=== PATIENT | male | born 1940 | race Caucasian/White ===

== ENCOUNTER → 2016-03-16 | Outpatient (CLI) | payer MEDICARE ==
--- NOTE | 2016-03-16 13:56 | MR ---
EXAMINATION TYPE: MR brain wo con DATE OF EXAM: 03/16/2016 1:48 PM COMPARISON: Prior MRI brain September 02, 2013 HISTORY: Acute onset of severe Vertigo and diplopia per order. Double vision with right-sided hearing loss and loss of balance per patient. History of prostate cancer. TECHNIQUE: Multiplanar, multisequence imaging of the brain and brainstem is performed without IV cont rast. FINDINGS: Diffusion weighted images demonstrate no evidence of a recent infarct or other diffusion abnormality. There is no worrisome extra-axial fluid collection. The ventricular system and cisternal spaces are normal in size and appearance. The brain volume is age appropriate. There are scattered foci of T2 h yperintensity seen throughout the white matter bilaterally. Approximately 50 scattered lesions are pr esent. Lesions are nonspecific in appearance and distribution are most likely on basis of product of chronic small vessel ischemic change in patient this age. No significant change from prior MRI is not ed. Midline structures demonstrate normal morphology. The craniocervical junction appears within normal limits. Normal vascular flow voids are present. Tortuous course to distal left vertebral artery in pr oximal basilar artery is redemonstrated. Right globe shows distortion related to cortical buckle unch anged from prior study. The visualized paranasal sinuses are clear. No suspicious opacification of ma stoid air cells is present. IMPRESSION: 1. Stable moderate nonspecific white matter changes presumed on basis of product of chronic small ves ilene ischemic change in patient of this age.
== END | disposition home or self-care (01) ==
LOC: RADMRIMAIN 12:54
PROVIDERS: ATTEND Psychiatry & Neurology Neurology
DX: R90.89 Other abnormal findings on diagnostic imaging of central nervous system (principal); H53.2 Diplopia
CPT/HCPCS: 70551

== ENCOUNTER 2016-11-11 12:22 | Emergency (ER) | payer MEDICARE ==
[2016-11-11 12:34] VITALS: RESP 18
--- NOTE | 2016-11-11 13:38 | ED ---
Lower Extremity Injury HPI - General Chief Complaint: Extremity Injury, Lower Stated Complaint: left leg injury Time Seen by Provider: 11/11/16 12:44 Source: patient Mode of arrival: ambulatory Limitations: no limitations - History of Present Illness Initial Comments: 76-year-old male with past medical history of CVA/TIA, DM, HLD, HTN, seizures, and cancer presented for evaluation of left lower extremity injury. He states that on Saturday he was walking and stepped into a hole causing an abrasion to the left lateral/anterior schneider. He didn't pay any attention to it however over the course of the weekend is become more discolored, swollen however he denies significant pain. That he is still able to walk on the extremity and there is no decreased range of motion or decreased sensation. He denies any other injuries. - Related Data Home Medications Medication Instructions Recorded Confirmed ALPRAZolam [Xanax] 0.25 mg PO BID PRN 12/02/13 11/11/16 Aspirin 81 mg PO DAILY 12/02/13 11/11/16 Atorvastatin [Lipitor] 20 mg PO HS 12/02/13 11/11/16 amLODIPine BES/OLMESARTAN MED 1 tab PO DAILY 12/02/13 11/11/16 [Shira 5-40 mg Tablet] DULoxetine HCL [Cymbalta] 60 mg PO DAILY 08/09/14 11/11/16 Omeprazole [PriLOSEC] 20 mg PO AC-BID 08/09/14 11/11/16 Albuterol Inhaler [Ventolin Hfa 1 - 2 puff INHALATION RT-Q6H PRN 11/11/16 Inhaler] Atenolol [Tenormin] 25 mg PO BID 11/11/16 11/11/16 Fluticasone/Salmeterol [Advair 1 puff INHALATION RT-BID 11/11/16 11/11/16 250-50 Diskus] Gabapentin [Gralise] 600 mg PO HS 11/11/16 11/11/16 Meclizine [Antivert] 25 mg PO BID 11/11/16 11/11/16 metFORMIN HCL [Glucophage] 500 mg PO BID 11/11/16 11/11/16 Allergies Allergy/AdvReac Type Severity Reaction Status Date / Time Penicillins Allergy Rash/Hives Verified 11/11/16 13:57 tuberculin, purified protein Allergy Rapid Verified 11/11/16 13:57 deriva Heart Rate metoprolol tartrate AdvReac Hallucinati Verified 11/11/16 13:57 [From Lopressor] ons Review of Systems ROS Statement: Those systems with pertinent positive or pertinent negative responses have been documented in the HPI. ROS Other: All systems not noted in ROS Statement are negative. Constitutional: Denies: fever, chills Eyes: Denies: eye pain, eye discharge ENT: Denies: ear pain, throat pain Respiratory: Denies: cough, dyspnea Cardiovascular: Denies: chest pain, palpitations Endocrine: Denies: fatigue, heat or cold intolerance Gastrointestinal: Denies: abdominal pain, nausea, vomiting Genitourinary: Denies: urgency, dysuria Musculoskeletal: Denies: back pain, arthralgia, myalgia Skin: Reports: lesions (Abrasion to the left lateral/anterior lower extremity with significant contusion and discoloration. There is also multiple small bolus fluid collections across the entire area of injury.). Denies: rash Neurological: Denies: headache, weakness Psychiatric: Denies: anxiety, depression Hematological/Lymphatic: Denies: easy bleeding, easy bruising Past Medical History Past Medical History: Cancer, Chest Pain / Angina, CVA/TIA, Diabetes Mellitus, Hyperlipidemia, Hypertension, Seizure Disorder History of Any Multi-Drug Resistant Organisms: None Reported Additional Past Surgical History / Comment(s): eye surgery, lens implants Past Anesthesia/Blood Transfusion Reactions: No Reported Reaction Past Psychological History: No Psychological Hx Reported Smoking Status: Former smoker Past Alcohol Use History: None Reported Past Drug Use History: None Reported - Past Family History Father Family Medical History: No Reported History General Exam Limitations: no limitations General appearance: alert, in no apparent distress Head exam: Present: atraumatic, normocephalic, normal inspection Eye exam: Present: normal appearance, PERRL, EOMI. Absent: scleral icterus, conjunctival injection, periorbital swelling ENT exam: Present: normal exam, mucous membranes moist Neck exam: Present: normal inspection. Absent: tenderness, meningismus, lymphadenopathy Respiratory exam: Present: normal lung sounds bilaterally. Absent: respiratory distress, wheezes, rales, rhonchi, stridor Cardiovascular Exam: Present: regular rate, normal rhythm, normal heart sounds, other (Left foot cool to touch compared to the right which is warm.). Absent: systolic murmur, diastolic murmur, rubs, gallop, clicks GI/Abdominal exam: Present: soft, normal bowel sounds. Absent: distended, tenderness, guarding, rebound, rigid Rectal exam: Present: deferred Extremities exam: Present: full ROM, other (Left anterolateral calf with significant bruising and swelling. There is also fluid-filled collections under the skin above and below the area of injury as well as immediately adjacent. Only mild swelling to the left ankle of her skin is cool to touch to the left foot compared to the right.). Absent: tenderness, pedal edema, joint swelling Back exam: Present: normal inspection, full ROM. Absent: tenderness Neurological exam: Present: alert, oriented X3, CN II-XII intact, reflexes normal. Absent: motor sensory deficit Psychiatric exam: Present: normal affect, normal mood Skin exam: Present: erythema, vesicles. Absent: intact, normal color Course Vital Signs 11/11/16 12:27 Temperature 97.7 F Pulse Rate 74 Respiratory 18 Rate Blood Pressure 121/88 O2 Sat by Pulse 96 Oximetry Medical Decision Making - Medical Decision Making 76-year-old male presented for evaluation of injury to the left lower extremity on Saturday. States he stepped in a hole causing an abrasion however he was able to continue walking throughout the weekend. He noted that the left anterior lateral surface of his leg where the abrasion had occurred has consistently been becoming discolored with swelling and now there are vesicle lesions surrounding the injury. There is also lower extremity swelling but only minimally. On physical examination the left lower extremity is noted as above with significant contusion and discoloration. The patient denies any anticoagulant use. The left foot is also cool to touch compared to the right which is warm. There appears to be no change in appearance between the 2 legs however they are both pale and baseline. Motor function is intact with full range of motion and there is no sensory deficit on exam. The patient is ambulating on the leg with no apparent discomfort. Concern for vascular injury versus compartment syndrome and will obtain an ankle brachial index as well as baseline labs. EULALIA shows no significant difference between the left or right legs with an index of 1.27 on the right and 1.25 on the left. On repeat evaluation the patient remains in no apparent distress and on reexamination temperature to palpation between the bilateral feet is closer approximation from previous. He was informed of results and through shared decision making it was determined that he would be discharged with instructions to follow-up with his primary care physician this week but to return if his symptoms should worsen or persist including but not limited to: Lower extremity weakness, pallor/discoloration, change in sensation, pain out of proportion to touching, or if the foot should become cold. The patient acknowledged an understanding of this information and agreed with this plan of care. - Lab Data Result diagrams: 11/11/16 13:33 11/11/16 13:33 Lab Results 11/11/16 11/11/16 11/11/16 Range/Units 13:33 13:33 13:33 WBC 7.3 (3.8-10.6) k/uL RBC 4.90 (4.30-5.90) m/uL Hgb 15.8 (13.0-17.5) gm/dL Hct 46.1 (39.0-53.0) % MCV 94.0 (80.0-100.0) fL MCH 32.3 (25.0-35.0) pg MCHC 34.4 (31.0-37.0) g/dL RDW 13.3 (11.5-15.5) % Plt Count 214 (150-450) k/uL Neutrophils % 64 % Lymphocytes % 22 % Monocytes % 10 % Eosinophils % 2 % Basophils % 1 % Neutrophils # 4.7 (1.3-7.7) k/uL Lymphocytes # 1.6 (1.0-4.8) k/uL Monocytes # 0.7 (0-1.0) k/uL Eosinophils # 0.1 (0-0.7) k/uL Basophils # 0.1 (0-0.2) k/uL PT 10.9 (9.0-12.0) sec INR 1.1 (<1.2) APTT 23.2 (22.0-30.0) sec Sodium 139 (137-145) mmol/L Potassium 4.3 (3.5-5.1) mmol/L Chloride 105 (98-107) mmol/L Carbon Dioxide 25 (22-30) mmol/L Anion Gap 9 mmol/L BUN 13 (9-20) mg/dL Creatinine 1.20 (0.66-1.25) mg/dL Est GFR (MDRD) Af Amer >60 (>60 ml/min/1.73 sqM) Est GFR (MDRD) Non-Af 59 (>60 ml/min/1.73 sqM) Glucose 110 H (74-99) mg/dL Calcium 9.6 (8.4-10.2) mg/dL 11/11/16 15:01 EKG shows normal sinus rhythm with a ventricular rate of 70, TOMMIE 168, QRS 96, QT /QTC 396/427. Disposition Clinical Impression: Abrasion, lower leg, anterior, Contusion of lower limb, left Disposition: HOME SELF-CARE Condition: Stable Instructions: Abrasion (ED) Referrals: Jigar Chris MD [Primary Care Provider] - 1-2 days Time of Disposition: 15:04
[2016-11-11 14:09] LABS: Basophils # (A) 0.1 k/uL (0-0.2); Basophils % (A) 1 %; CH 31.6; CHCM 33.7; Eosinophils # (A) 0.1 k/uL (0-0.7); Eosinophils % (A) 2 %; HCT 46.1 % (39.0-53.0); HDW 2.41; HGB 15.8 gm/dL (13.0-17.5); Luc % (Auto) 3; Lymphocytes # (A) 1.6 k/uL (1.0-4.8); Lymphocytes % (A) 22 %; MCH 32.3 pg (25.0-35.0); MCHC 34.4 g/dL (31.0-37.0); Monocytes # (A) 0.7 k/uL (0-1.0); Monocytes % (A) 10 %; Neutrophils # (A) 4.7 k/uL (1.3-7.7); Neutrophils % (A) 64 %; RDW 13.3 % (11.5-15.5); WBC 7.3 k/uL (3.8-10.6); WBC (Perox) 7.23
[2016-11-11 14:14] LABS: INR 1.1 (<1.2); Partial Thromboplastin Time 23.2 sec (22.0-30.0); Prothrombin Time 10.9 sec (9.0-12.0)
[2016-11-11 14:16] LABS: Anion Gap 9 mmol/L; Blood Urea Nitrogen 13 mg/dL (9-20); Calcium 9.6 mg/dL (8.4-10.2); Carbon Dioxide 25 mmol/L (22-30); Chloride 105 mmol/L (98-107); Glucose 110 mg/dL (74-99); Non-African American GFR(MDRD) 59 (>60 ml/min/1.73 sqM); Potassium 4.3 mmol/L (3.5-5.1); Sodium 139 mmol/L (137-145)
[2016-11-11 15:37] VITALS: BP 120/70; PULSE 78; TEMP 98
--- NOTE | 2016-11-14 10:29 | P.ARTDOP ---
Arterial Doppler LOWER EXTREMITY ARTERIAL DOPPLER: DATE OF SERVICE: 11/11/2016 Reason for study: Left leg injury. Doppler waveforms: Multiphasic bilaterally throughout. Pulse volume recording: Normal configuration. Pressure gradients: None. Ankle-brachial indices: Greater than 1 bilaterally. Toe pressures: [] on the right, [] on the left Impression: Normal study.
== END 2016-11-11 15:35 | disposition home or self-care (01) ==
LOC: EC 12:22
DX: S80.12XA Contusion of left lower leg, initial encounter (principal); E11.9 Type 2 diabetes mellitus without complications; E78.5 Hyperlipidemia, unspecified; I10 Essential (primary) hypertension; G40.909 Epilepsy, unspecified, not intractable, without status epilepticus; Z85.9 Personal history of malignant neoplasm, unspecified; Z88.0 Allergy status to penicillin; Z88.8 Allergy status to other drugs, medicaments and biological substances; Z88.7 Allergy status to serum and vaccine; Z79.51 Long term (current) use of inhaled steroids; Z79.84 Long term (current) use of oral hypoglycemic drugs; Z87.891 Personal history of nicotine dependence; Z79.82 Long term (current) use of aspirin; Z79.899 Other long term (current) drug therapy; W18.42XA Slipping, tripping and stumbling without falling due to stepping into hole or opening, initial encounter; Y93.01 Activity, walking, marching and hiking
CPT/HCPCS: 36415; 80048; 85025; 85610; 85730; 93005; 93923; 99284

== ENCOUNTER 2017-03-15 10:22 | Observation (INO) | payer MEDICARE ==
[2017-03-15 10:39] LABS: Glucose,Whole Blood 85 mg/dL (75-99)
[2017-03-15] MEDS ORDERED: SODIUM CHLORIDE 0.9% 1,000 ML IV STA (10:41)
--- NOTE | 2017-03-15 10:48 | ED ---
Syncope HPI - General Chief Complaint: Syncope Stated Complaint: Fall-Back Injury Time Seen by Provider: 03/15/17 10:24 Source: patient, RN notes reviewed Mode of arrival: ambulatory Limitations: no limitations - History of Present Illness Initial Comments: This is a 76-year-old male with a history of prostate cancer was reaching to get an item of the medicine cabinet when he passed out. He states he is only out for a few seconds he did land however across the edge of a bathtub and complains of bilateral lower rib pain. No head neck or back pain. He does state also has some blurry vision of his right eye. This lasted about 30 minutes. Is now resolved. He does have a prior history of stroke. No fevers chills nausea vomiting sweats he also has a history of seizures but no seizure was witnessed. MD Complaint: loss of consciousness - Related Data Home Medications Medication Instructions Recorded Confirmed ALPRAZolam [Xanax] 0.25 mg PO BID PRN 12/02/13 03/15/17 Aspirin 81 mg PO DAILY 12/02/13 03/15/17 Atorvastatin [Lipitor] 20 mg PO HS 12/02/13 03/15/17 DULoxetine HCL [Cymbalta] 60 mg PO DAILY 08/09/14 03/15/17 Omeprazole [PriLOSEC] 20 mg PO AC-BID 08/09/14 03/15/17 Albuterol Inhaler [Ventolin Hfa 1 - 2 puff INHALATION RT-Q6H PRN 11/11/16 Inhaler] Atenolol [Tenormin] 25 mg PO BID 11/11/16 03/15/17 Fluticasone/Salmeterol [Advair 1 puff INHALATION RT-BID 11/11/16 03/15/17 250-50 Diskus] Gabapentin [Gralise] 600 mg PO HS 11/11/16 03/15/17 Meclizine [Antivert] 25 mg PO BID 11/11/16 03/15/17 Lisinopril 40 mg PO DAILY 03/15/17 03/15/17 Allergies Allergy/AdvReac Type Severity Reaction Status Date / Time Penicillins Allergy Rash/Hives Verified 03/15/17 10:57 tuberculin, purified protein Allergy Rapid Verified 03/15/17 10:57 deriva Heart Rate metoprolol tartrate AdvReac Hallucinati Verified 03/15/17 10:57 [From Lopressor] ons Review of Systems ROS Statement: Those systems with pertinent positive or pertinent negative responses have been documented in the HPI. ROS Other: All systems not noted in ROS Statement are negative. Past Medical History Past Medical History: Cancer, Chest Pain / Angina, CVA/TIA, Diabetes Mellitus, Hyperlipidemia, Hypertension, Prostate Disorder, Seizure Disorder History of Any Multi-Drug Resistant Organisms: None Reported Past Surgical History: Cholecystectomy Additional Past Surgical History / Comment(s): eye surgery, lens implants, prostate CA Past Anesthesia/Blood Transfusion Reactions: No Reported Reaction Past Psychological History: No Psychological Hx Reported Smoking Status: Former smoker Past Alcohol Use History: None Reported Past Drug Use History: None Reported - Past Family History Father Family Medical History: No Reported History General Exam - General Exam Comments Initial Comments: This a well-developed well-nourished awake alert oriented 3 male he does them straight a [place] Coma Scale of 15 Limitations: no limitations General appearance: alert, in no apparent distress Head exam: Present: atraumatic, normocephalic, normal inspection Eye exam: Present: normal appearance, PERRL, EOMI. Absent: scleral icterus, conjunctival injection, periorbital swelling ENT exam: Present: normal exam, mucous membranes moist Neck exam: Present: normal inspection. Absent: tenderness, meningismus, lymphadenopathy Respiratory exam: Present: normal lung sounds bilaterally, chest wall tenderness (Abrasion and tenderness over both CVA regions. No definite step- off or crepitation.). Absent: respiratory distress, wheezes, rales, rhonchi, stridor Cardiovascular Exam: Present: regular rate, normal rhythm, normal heart sounds. Absent: systolic murmur, diastolic murmur, rubs, gallop, clicks GI/Abdominal exam: Present: soft, normal bowel sounds. Absent: distended, tenderness, guarding, rebound, rigid Extremities exam: Present: normal inspection, full ROM, normal capillary refill. Absent: tenderness, pedal edema, joint swelling, calf tenderness Back exam: Present: normal inspection, full ROM, CVA tenderness (R), CVA tenderness (L), other (Abrasion noted over both CVA regions. No active bleeding no foreign body). Absent: tenderness, paraspinal tenderness, vertebral tenderness Neurological exam: Present: alert, oriented X3, CN II-XII intact Psychiatric exam: Present: normal affect, normal mood Skin exam: Present: warm, dry, normal color. Absent: intact, rash Course Vital Signs 03/15/17 03/15/17 10:26 10:54 Temperature 97.1 F L Pulse Rate 67 65 Respiratory 17 16 Rate Blood Pressure 172/98 135/74 O2 Sat by Pulse 95 95 Oximetry - Reevaluation(s) Reevaluation #1: 03/15/17 13:13 Reevaluation patient reveals no changes no further episodes. EKG Findings - EKG Results: EKG: interpreted by ERMD, sinus rhythm, normal axis, normal QRS, normal ST/T, no acute changes (EKG shows normal sinus rhythm at 66. Interval 170 QRS duration 92 QT since QTC of 44/[address]-T wave changes.) Medical Decision Making - Medical Decision Making I did discuss findings with the patient and family member. Acid discuss case Dr. Guillory. Patient be admitted for evaluation for syncope. - Lab Data Result diagrams: 03/15/17 10:00 03/15/17 10:00 Lab Results 03/15/17 03/15/17 03/15/17 Range/Units 10:00 10:00 10:00 WBC 6.9 (3.8-10.6) k/uL RBC 5.50 (4.30-5.90) m/uL Hgb 16.7 (13.0-17.5) gm/dL Hct 54.0 H (39.0-53.0) % MCV 98.3 (80.0-100.0) fL MCH 30.3 (25.0-35.0) pg MCHC 30.8 L (31.0-37.0) g/dL RDW 14.9 (11.5-15.5) % Plt Count 208 (150-450) k/uL Neutrophils % 71 % Lymphocytes % 13 % Monocytes % 10 % Eosinophils % 2 % Basophils % 1 % Neutrophils # 4.9 (1.3-7.7) k/uL Lymphocytes # 0.9 L (1.0-4.8) k/uL Monocytes # 0.7 (0-1.0) k/uL Eosinophils # 0.1 (0-0.7) k/uL Basophils # 0.1 (0-0.2) k/uL PT (9.0-12.0) sec INR (<1.2) APTT (22.0-30.0) sec Sodium 140 (137-145) mmol/L Potassium 4.8 (3.5-5.1) mmol/L Chloride 103 (98-107) mmol/L Carbon Dioxide 25 (22-30) mmol/L Anion Gap 12 mmol/L BUN 15 (9-20) mg/dL Creatinine 0.93 (0.66-1.25) mg/dL Est GFR (MDRD) Af Amer >60 (>60 ml/min/1.73 sqM) Est GFR (MDRD) Non-Af >60 (>60 ml/min/1.73 sqM) Glucose 97 (74-99) mg/dL POC Glucose (mg/dL) (75-99) mg/dL POC Glu School Admissions Representative ID Calcium 10.4 H (8.4-10.2) mg/dL Magnesium 1.8 (1.6-2.3) mg/dL Total Bilirubin 0.9 (0.2-1.3) mg/dL AST 28 (17-59) U/L ALT 31 (21-72) U/L Alkaline Phosphatase 64 (38-126) U/L Total Creatine Kinase 55 (55-170) U/L CK-MB (CK-2) 0.3 (0.0-2.4) ng/mL CK-MB (CK-2) Rel Index 0.5 Troponin I <0.012 (0.000-0.034) ng/mL Total Protein 6.7 (6.3-8.2) g/dL Albumin 4.1 (3.5-5.0) g/dL Urine Color Urine Appearance (Clear) Urine pH (5.0-8.0) Ur Specific [place] (1.001-1.035) Urine Protein (Negative) Urine Glucose (UA) (Negative) Urine Ketones (Negative) Urine Blood (Negative) Urine Nitrite (Negative) Urine Bilirubin (Negative) Urine Urobilinogen (<2.0) mg/dL Ur Leukocyte Esterase (Negative) 03/15/17 03/15/17 03/15/17 Range/Units 10:00 10:37 11:30 WBC (3.8-10.6) k/uL RBC (4.30-5.90) m/uL Hgb (13.0-17.5) gm/dL Hct (39.0-53.0) % MCV (80.0-100.0) fL MCH (25.0-35.0) pg MCHC (31.0-37.0) g/dL RDW (11.5-15.5) % Plt Count (150-450) k/uL Neutrophils % % Lymphocytes % % Monocytes % % Eosinophils % % Basophils % % Neutrophils # (1.3-7.7) k/uL Lymphocytes # (1.0-4.8) k/uL Monocytes # (0-1.0) k/uL Eosinophils # (0-0.7) k/uL Basophils # (0-0.2) k/uL PT 10.7 (9.0-12.0) sec INR 1.1 (<1.2) APTT 23.4 (22.0-30.0) sec Sodium (137-145) mmol/L Potassium (3.5-5.1) mmol/L Chloride (98-107) mmol/L Carbon Dioxide (22-30) mmol/L Anion Gap mmol/L BUN (9-20) mg/dL Creatinine (0.66-1.25) mg/dL Est GFR (MDRD) Af Amer (>60 ml/min/1.73 sqM) Est GFR (MDRD) Non-Af (>60 ml/min/1.73 sqM) Glucose (74-99) mg/dL POC Glucose (mg/dL) 85 (75-99) mg/dL POC Glu School Admissions Representative ID Bowling, Millicent Calcium (8.4-10.2) mg/dL Magnesium (1.6-2.3) mg/dL Total Bilirubin (0.2-1.3) mg/dL AST (17-59) U/L ALT (21-72) U/L Alkaline Phosphatase (38-126) U/L Total Creatine Kinase (55-170) U/L CK-MB (CK-2) (0.0-2.4) ng/mL CK-MB (CK-2) Rel Index Troponin I (0.000-0.034) ng/mL Total Protein (6.3-8.2) g/dL Albumin (3.5-5.0) g/dL Urine Color Yellow Urine Appearance Clear (Clear) Urine pH 6.0 (5.0-8.0) Ur Specific [place] 1.020 (1.001-1.035) Urine Protein Trace H (Negative) Urine Glucose (UA) Negative (Negative) Urine Ketones Negative (Negative) Urine Blood Negative (Negative) Urine Nitrite Negative (Negative) Urine Bilirubin Negative (Negative) Urine Urobilinogen 2.0 (<2.0) mg/dL Ur Leukocyte Esterase Negative (Negative) - Radiology Data Radiology results: report reviewed (I did review the imaging and report no acute findings.), image reviewed Critical Care Time Critical Care Time: Yes Critical Care Time: 31 minutes of critical care time which includes initial presentation with history physical labs x-rays reevaluation the patient several occasions discussion with the patient family regarding findings discussed with the admitting physician admission orders and documentation of the above Disposition Clinical Impression: Syncope and collapse Disposition: ADMITTED IP TO THIS [facility] Condition: Stable Referrals: Conor Dave MD [Primary Care Provider] - 1-2 days
[2017-03-15 11:06] LABS: Basophils # (A) 0.1 k/uL (0-0.2); Basophils % (A) 1 %; Eosinophils # (A) 0.1 k/uL (0-0.7); Eosinophils % (A) 2 %; HGB 16.7 gm/dL (13.0-17.5); Lymphocytes # (A) 0.9 k/uL (1.0-4.8); Lymphocytes % (A) 13 %; MCH 30.3 pg (25.0-35.0); MCHC 30.8 g/dL (31.0-37.0); MCV 98.3 fL (80.0-100.0); Mean Platelet Volume 7.5; Monocytes # (A) 0.7 k/uL (0-1.0); Monocytes % (A) 10 %; Neutrophils # (A) 4.9 k/uL (1.3-7.7); Neutrophils % (A) 71 %; Platelet Count 208 k/uL (150-450); RDW 14.9 % (11.5-15.5); WBC 6.9 k/uL (3.8-10.6)
[2017-03-15 11:15] LABS: INR 1.1 (<1.2); Partial Thromboplastin Time 23.4 sec (22.0-30.0); Prothrombin Time 10.7 sec (9.0-12.0)
[2017-03-15 11:18] LABS: ALT 31 U/L (21-72); AST 28 U/L (17-59); Albumin 4.1 g/dL (3.5-5.0); Alkaline Phosphatase 64 U/L (38-126); Anion Gap 12 mmol/L; Blood Urea Nitrogen 15 mg/dL (9-20); Calcium 10.4 mg/dL (8.4-10.2); Carbon Dioxide 25 mmol/L (22-30); Chloride 103 mmol/L (98-107); Glucose 97 mg/dL (74-99); Magnesium 1.8 mg/dL (1.6-2.3); Potassium 4.8 mmol/L (3.5-5.1); Sodium 140 mmol/L (137-145); Total Bilirubin 0.9 mg/dL (0.2-1.3); Total Protein 6.7 g/dL (6.3-8.2)
[2017-03-15 11:25] LABS: Creatine Kinase 55 U/L (55-170)
--- NOTE | 2017-03-15 11:26 | CT ---
EXAMINATION TYPE: CT brain wo con DATE OF EXAM: 03/15/2017 HISTORY: Passed out today CT DLP: 1100 mGycm. Automated Exposure Control for Dose Reduction was Utilized. TECHNIQUE: CT scan of the head is performed without contrast. COMPARISON: MRI brain September 02, 2013. FINDINGS: There is no acute intracranial hemorrhage or midline shift identified. There is diffuse v entricular and sulcal prominence consistent with diffuse age-related cerebral atrophy. There is slig htly more prominent asymmetric bilateral frontal lobe atrophy redemonstrated. There is low-attenuatio n in the periventricular white matter consistent with chronic small vessel ischemic change. Scleral c alcification right globe is redemonstrated. Left globe is intact. Visualized paranasal sinuses are cl ear. Patchy soft tissue density right extra auditory canal is felt to reflect cerumen. The calvarium is intact. IMPRESSION: No acute intracranial hemorrhage or midline shift. There is mild diffuse age-related ce rebral atrophy with slightly more prominent mild to moderate bilateral frontal lobe atrophy and fairl y moderate chronic small vessel ischemic change all redemonstrated. No significant change from prior MRI.
[2017-03-15] MEDS ORDERED: MORPHINE SULFATE 5 MG/ML SYRINGE IVP STA (11:35)
[2017-03-15 11:38] LABS: Creatine Kinase MB 0.3 ng/mL (0.0-2.4); Troponin I <0.012 ng/mL (0.000-0.034)
[2017-03-15 11:45] LABS: Appearance,Urine Clear (Clear); Bilirubin,Urine Negative (Negative); Blood,Urine Negative (Negative); Color,Urine Yellow; Glucose,Urine (UA) Negative (Negative); Ketones,Urine Negative (Negative); Leukocyte Esterase,Urine Negative (Negative); Nitrite,Urine Negative (Negative); Protein,Urine Trace (Negative)
--- NOTE | 2017-03-15 11:51 | XR ---
EXAMINATION TYPE: XR ribs bilat w pa chest xray DATE OF EXAM: 03/15/2017 COMPARISON: NONE HISTORY: Pain TECHNIQUE: Single view of the chest 8 views of the ribs are submitted. FINDINGS: The lungs are clear. No Evidence for pneumothorax. No evidence for focal contusion. Medi astinal structures are midline. Evaluation of the ribs fails to demonstrate evidence for displaced r ib fracture or secondary sign of rib fracture. IMPRESSION: Negative study
[2017-03-15] MEDS ORDERED: ALBUTEROL NEBULIZED 2.5 MG/3 ML INHALATION PRN (13:17)
[2017-03-15] MEDS ORDERED: ALPRAZolam 0.25 MG TAB PO PRN (13:17)
--- NOTE | 2017-03-15 15:06 | US ---
EXAMINATION TYPE: US carotid duplex BILAT DATE OF EXAM: 03/15/2017 COMPARISON: NONE CLINICAL HISTORY: Stenosis. EXAM MEASUREMENTS: RIGHT: Peak Systolic Velocity (PSV) cm/sec ----- Right CCA: 63.6 ----- Right ICA: 52.6 ----- Right ECA: 62.4 ICA/CCA ratio: 0.8 RIGHT: End Diastole cm/sec ----- Right CCA: 12.0 ----- Right ICA: 16.4 ----- Right ECA: 7.1 LEFT: Peak Systolic Velocity (PSV) cm/sec ----- Left CCA: 65.8 ----- Left ICA: 62.0 ----- Left ECA: 60.7 ICA/CCA ratio: 0.9 LEFT: End Diastole cm/sec ----- Left CCA: 15.3 ----- Left ICA: 11.5 ----- Left ECA: 6.3 VERTEBRALS (direction of flow): Right Vertebral: Antegrade Left Vertebral: Antegrade Rhythm: Normal mild atherosclerotic changes in left bulb No significant hemodynamic stenosis IMPRESSION: No hemodynamically significant stenosis appreciated. Criteria for Assigning % of Stenosis / Diameter reduction (Estimation based on the indirect measurements of the internal carotid artery velocities (ICA PSV). 1. Normal (no stenosis)=ICA PSV < 125 cm/s: ratio < 2.0: ICA EDV<40 cm/s. 2. Less than 50% stenosis=ICA PSV < 125 cm/s: ratio < 2.0: ICA EDV<40 cm/s. 3. 50 to 69% stenosis=ICA PSV of 125 to 230 cm/s: ration 2.0 ? 4.0: ICA EDV 40-100 cm/s. 4. Greater than 70% stenosis to near occlusion= ICA PSV > 230 cm/s: ratio > 4.0: ICA EDV > 100 cm/s. 5. Near occlusion= ICA PSV velocities may be low or undetectable: variable ratio and ICA EDV. 6. Total occlusion=unable to detect flow.
--- NOTE | 2017-03-15 16:43 | HP ---
HISTORY AND PHYSICAL DATE OF ADMISSION: March 15, 2017. PRESENTING COMPLAINT: Passed out. HISTORY OF PRESENTING COMPLAINT: A very pleasant 76-year-old patient of Dr. Dave. Chronic stable medical conditions include coronary artery disease, diabetes, GERD, hypertension, seizure disorder, last one being a year ago. The patient this morning was getting dressed and was in the bathroom, reaching out over the top at the cabinet and patient suddenly passed out landing on his back. There was no chest pain. No palpitation. No seizure activity. The patient is briefly down for few seconds and then came around. The patient does notice that sometimes he gets dizzy and lightheaded when he tries to get up or stand up, and he has had this for some time. There was no tongue biting or incontinence. REVIEW OF SYSTEMS: CONSTITUTIONAL: None. HEENT none. Respiratory none. Cardiovascular none. Gastrointestinal heartburn. Genitourinary none. Musculoskeletal some lower back pain. Dermatological, hematologic, lymphatics none. Psychiatry none. Neurological as above. PAST HISTORY: Coronary artery disease, stroke with left-sided weakness, now recovered, diabetes, GERD, hypertension, seizure disorder, last one being a year ago, prostate cancer with surgery. PAST SURGICAL HISTORY: Past surgical history of cholecystectomy, prostatectomy, bilateral cataract surgery, colonoscopy, 2003, cardiac catheterization, treated medically. SOCIAL HISTORY: The patient smoked for 17 years. Stopped in 1976. . Retired. FAMILY HISTORY: Father of cancer, type unknown. HOME MEDICATIONS: 1. Omeprazole 20 mg p.o. b.i.d. 2. Antivert 25 p.o. b.i.d. 3. Lisinopril 40 mg p.o. daily. 4. Neurontin 600 mg q.h.s. 5. Advair 250 /50 one puff b.i.d. 6. Cymbalta 60 mg p.o. daily. 7. Lipitor 20 mg q.h.s. 8. Tenormin 25 p.o. b.i.d. 9. Aspirin 81 mg p.o. daily. 10.Ventolin HFA 1-2 puffs q.6h p.r.n. 11.Xanax 0.25 p.o. b.i.d. ALLERGIES: PENICILLIN, LOPRESSOR. PHYSICAL EXAMINATION: Temperature 97.1, pulse 67, respiration 17, blood pressure 172/98 on presentation, then repeat was 135/74, pulse ox 95% room air. General appearance: Average build, sitting up, not in distress. Eyes: Pupils equal. Conjunctivae normal. HEENT: Oral cavity normal. Neck JVD not raised. Mass not palpable. Respiratory effort: Lungs slightly decreased breath sounds. Cardiovascular 1st and 2nd sounds normal. No edema. ABDOMEN: Soft, nontender. Liver and spleen not palpable. Lymphatics: No lymph nodes palpable in the neck and axilla. Psychiatry alert and oriented x3. Mood and affect normal. Neurological: Pupils equal. Cranial nerves grossly intact. Power and sensation grossly intact. INVESTIGATIONS: White count 6.9, hemoglobin 16.7, potassium 4.2. BUN and creatinine is normal. Troponin negative. CT scan of the brain shows some age-related changes, some frontal lobe atrophy, nil acute. EKG normal sinus rhythm. ASSESSMENT: 1. This is a patient often times gets dizzy on standing up, was trying to reach out across the top of the cabinet and passed out. I suspect patient has underlying orthostatic hypertension. I do not have any current readings. Will check for the same. At the same time, given his history of some coronary artery disease, need to rule out underlying arrhythmia. There was no seizure activity and the episode was too short lived to be the same. 2. Coronary artery disease. More details are not known. 3. Gastroesophageal reflux disease. 4. Essential hypertension. 5. Seizure disorder. PLAN: We will check patient's orthostatics. Order some Giovanny stockings. Keep the patient on telemetry. Do a lumbar sacral film. Care was discussed with the patient. Questions were answered. Copy to Dr. Dave. LUCIA / SHEN: [id number] /
[2017-03-15] MEDS: Acetaminophen-Codeine 300-30mg TAB PO PRN ×2 (17:04→23:21)
--- NOTE | 2017-03-15 17:09 | XR ---
EXAMINATION TYPE: XR thoraco lumbar junction DATE OF EXAM: 03/15/2017 COMPARISON: NONE HISTORY: Pain TECHNIQUE: 2 views FINDINGS: The vertebra have normal spacing and alignment. There is no lower thoracic paraspinal mass. Posterior elements appear intact. There is minor spurring of the endplates in the lower thoracic spi ne. I see no compression fracture. IMPRESSION: Mild spurring. Otherwise negative exam. No fracture seen.
[2017-03-15] MEDS: SYMBICORT 80-4.5 MCG INHALER INHALATION SCH (20:45)
[2017-03-15] MEDS ORDERED: MECLIZINE 25 MG TAB PO SCH (21:00)
[2017-03-15 21:29] LABS: Glucose,Whole Blood 98 mg/dL (75-99)
[2017-03-15] MEDS: ATORVASTATIN 20 MG TAB PO SCH (21:59)
[2017-03-15] MEDS: ATENOLOL 25 MG TAB PO SCH (21:59)
[2017-03-15] MEDS: PANTOPRAZOLE 40 MG TABLET PO SCH (21:59)
[2017-03-15] MEDS: metFORMIN 500 MG TAB PO SCH (21:59)
[2017-03-16 01:19] LABS: Cholesterol 136 mg/dL (<200); HDL Cholesterol 41 mg/dL (40-60); LDL Cholesterol,Calculated 74 mg/dL (0-99); Triglycerides 103 mg/dL (<150)
[2017-03-16] MEDS: GABAPENTIN 600 MG PO SCH ×2 (05:13→21:34)
[2017-03-16 06:11] LABS: Glucose,Whole Blood 83 mg/dL (75-99)
[2017-03-16] MEDS: Acetaminophen-Codeine 300-30mg TAB PO PRN ×2 (07:08→13:10)
[2017-03-16] MEDS: PANTOPRAZOLE 40 MG TABLET PO SCH ×2 (07:08→17:35)
[2017-03-16] MEDS: metFORMIN 500 MG TAB PO SCH ×2 (07:09→17:35)
[2017-03-16] MEDS: ATENOLOL 25 MG TAB PO SCH ×2 (08:35→21:34)
[2017-03-16] MEDS: DULoxetine HCL 60 MG CAPSULE.DR PO SCH (08:35)
[2017-03-16] MEDS: ASPIRIN 81 MG PO SCH (08:35)
[2017-03-16] MEDS: LISINOPRIL 20 MG TAB PO SCH (08:35)
[2017-03-16] MEDS: SYMBICORT 80-4.5 MCG INHALER INHALATION SCH ×2 (08:40→21:23)
[2017-03-16 09:34] LABS: Anion Gap 11 mmol/L; Blood Urea Nitrogen 14 mg/dL (9-20); Calcium 9.2 mg/dL (8.4-10.2); Carbon Dioxide 26 mmol/L (22-30); Chloride 102 mmol/L (98-107); Glucose 161 mg/dL (74-99); Potassium 4.1 mmol/L (3.5-5.1); Sodium 139 mmol/L (137-145)
[2017-03-16] MEDS: ENOXAPARIN 40 MG/0.4 ML SYRINGE SQ SCH (11:01)
[2017-03-16 11:46] LABS: Glucose,Whole Blood 92 mg/dL (75-99)
--- NOTE | 2017-03-16 12:13 | P.PN ---
Progress Note - Text Progress Note Date: 03/16/17 DATE OF SERVICE: 03/16/2017 PRESENTING COMPLAINT: Passed out HISTORY OF PRESENT ILLNESS: 76-year-old male who was getting dressed in his bathroom reached over the top of the cabinet and suddenly passed out Jose on his back. No chest pain no palpitations no seizure activity, down for only a few seconds and then came around. Does confirm that he gets dizzy and lightheaded sometimes when he tries to get up or stand up and this is been ongoing for a while. Admitted for syncope and collapse. INTERVAL HISTORY: 03/16/2017: patient lying in bed appears comfortable. Complains of back pain sustained during his fall.has had no further episodes of syncope, dizziness or lightheadedness. He gets up with assistance. Appetite is fair, eating 30% of his breakfast. Last BM prior to admission. REVIEW OF SYSTEMS: Done for constitutional ,cardiovascular, GI, pulmonary with relevant findings as above. CURRENT MEDICATIONS Tylenol No. 3, albuterol, Xanax, aspirin, atenolol, Lipitor, Symbicort, Cymbalta ,Lovenox, Zestril, Glucophage, gabapentin, Protonix. PHYSICAL EXAM VITAL SIGNS: temperature 98.6, pulse 81, respiratory rate 16, blood pressure sitting 136/84, standing 138/89, supine 141/83, oxygen saturation 92% on room air. GENERAL APPEARANCE: . Lying in bed, not in distress. EYES: Pupils equal. Conjunctiva normal. NECK: JVD not raised. Mass not palpable. RESPIRATORY: Respiratory effort normal. Lungs diminished to auscultation. CARDIOVASCULAR: First and second sounds normal. No edema. ABDOMEN: Soft. Liver and spleen not palpable. No tenderness. No mass palpable. PSYCHIATRY: Alert and oriented x3. Mood and affect normal. MUSCULOSKELETAL: Point tenderness to thoracic spine area, and surrounding musculature. INVESTIGATIONS: Sodium 139, potassium 4.1, BUN 14, creatinine 1.00. Accu-Cheks noted. ASSESSMENT: -syncope and collapse of unknown origin -Coronary artery disease, -Gastroesophageal reflux disease. -Essential hypertension. -Seizure disorder. PLAN: blood pressure is not orthostatic,spinal x-ray negative for any acute fracture or process. Heating pad provided for back pain. Plan of care discussed with the patient the bedside we will follow closely. BOOT TRIMMER statement: Patient was seen and examined by nurse practitioner Jodi Voss and all elements of the case discussed with attending Dr. Guillory
[2017-03-16 17:45] VITALS: RESP 18
[2017-03-16] MEDS: ACETAMINOPHEN TAB 325 MG TAB PO SCH ×2 (19:17→23:40)
[2017-03-16] MEDS: ATORVASTATIN 20 MG TAB PO SCH (21:34)
[2017-03-16] MEDS: BACLOFEN 10 MG TAB PO SCH (21:34)
--- NOTE | 2017-03-16 22:02 | PN ---
PROGRESS NOTE DATE OF SERVICE: 03/16/2017. ATTENDING NOTE: The patient seen and examined by me. I discussed with my nurse practitioner, Ms. Voss. The patient presented with a syncopal fall felt to be orthostatic. The patient did better with IV fluids. The patient may need a tilt-table test as outpatient. Late in the afternoon, I was called, the patient being slightly delirious. Tylenol No. 3 was discontinued. No fracture on the thoracolumbar spine. EXAM: Lungs are clear. CARDIOVASCULAR: First and second sounds normal. Telemetry does not show any arrhythmias. Orthostatics now are negative. PLAN: The patient's Tylenol No. 3 was discontinued, will be discontinued. Will give Tylenol around the clock, heating pad. Watch the patient overnight. MMODL / IJN: [id number] /
[2017-03-16 23:47] VITALS: TEMP 97.7
[2017-03-17] MEDS: ACETAMINOPHEN TAB 325 MG TAB PO SCH ×2 (06:56→13:54)
[2017-03-17] MEDS: SYMBICORT 80-4.5 MCG INHALER INHALATION SCH (07:55)
[2017-03-17] MEDS: ENOXAPARIN 40 MG/0.4 ML SYRINGE SQ SCH (08:17)
[2017-03-17] MEDS: PANTOPRAZOLE 40 MG TABLET PO SCH (08:18)
[2017-03-17] MEDS: LISINOPRIL 20 MG TAB PO SCH (08:18)
[2017-03-17] MEDS: ASPIRIN 81 MG PO SCH (08:19)
[2017-03-17] MEDS: ATENOLOL 25 MG TAB PO SCH (08:19)
[2017-03-17] MEDS: metFORMIN 500 MG TAB PO SCH (08:19)
[2017-03-17] MEDS: DULoxetine HCL 60 MG CAPSULE.DR PO SCH (08:19)
[2017-03-17] MEDS: BACLOFEN 10 MG TAB PO SCH (08:20)
[2017-03-17 08:28] LABS: Anion Gap 10 mmol/L; Blood Urea Nitrogen 12 mg/dL (9-20); Calcium 9.5 mg/dL (8.4-10.2); Carbon Dioxide 28 mmol/L (22-30); Chloride 100 mmol/L (98-107); Glucose 107 mg/dL (74-99); Sodium 138 mmol/L (137-145)
[2017-03-17 11:18] VITALS: BP 188/92; PULSE 68
--- NOTE | 2017-03-17 19:54 | P.DS ---
Providers Date of admission: 03/15/17 13:14 Expected date of discharge: 03/17/17 Attending physician: Cedric Guillory Primary care physician: [facility] Course: FINAL DIAGNOSES: -syncope and collapse of unknown origin -Coronary artery disease, -Gastroesophageal reflux disease. -Essential hypertension. -Seizure disorder. HOSPTIAL COURSE: 76-year-old male who presented after he passed out suddenly while getting dressed at home. Admitted for syncopal and collapse, Home medications reordered, patient placed on telemetry monitoring, orthostatic vitals performed. Repeated episodes of orthostatic vitals revealed no significant changes to explain patient's syncope X-ray of the thoracolumbar spine performed to rule out any acute fracture. Telemetry monitoring showed no arrhythmias. Patient's ambulatory in the room and randall ways tolerating his diet, instructed to rise slowly when changing positions. Patient's daughter at the bedside and this just discussed with her and the patient. They verbalized understanding. Patient's condition is stable for discharge. PHYSICAL EXAM: CARDIOVASCULAR: First and second sounds noted no edema RESPIRATORY: Respiratory effort normal, lung sounds diminished bilaterally to the bases. GI: Abdomen soft nontender liver and spleen not palpable. MUSKULOSKELETAL: Ambulatory in the room and randall ways with a steady gait PSYCHIATRY: Alert and oriented 3 mood and affect normal. Patient was seen and examined by nurse practitioner Jodi Voss in all elements of the case discussed with attending Dr. Guillory DISPOSITION: Discharge home, with instructions to follow-up with cardiology outpatient for tilt table test. Patient Condition at Discharge: Stable Plan - Discharge Summary Discharge Rx Participant: No New Discharge Prescriptions: New Baclofen [Lioresal] 5 mg PO TID PRN #20 tablet PRN Reason: Muscle Spasm Naproxen [Naprosyn] 250 mg PO BID #14 tab No Action Atorvastatin [Lipitor] 20 mg PO HS Aspirin 81 mg PO DAILY ALPRAZolam [Xanax] 0.25 mg PO BID PRN PRN Reason: Anxiety Omeprazole [PriLOSEC] 20 mg PO AC-BID DULoxetine HCL [Cymbalta] 60 mg PO DAILY Fluticasone/Salmeterol [Advair 250-50 Diskus] 1 puff INHALATION RT-BID Atenolol [Tenormin] 25 mg PO BID Albuterol Inhaler [Ventolin Hfa Inhaler] 1 - 2 puff INHALATION RT-Q6H PRN PRN Reason: Shortness Of Breath Meclizine [Antivert] 25 mg PO BID Gabapentin [Gralise] 600 mg PO HS Lisinopril 40 mg PO DAILY metFORMIN HCL 1,000 mg PO BID Discharge Medication List ALPRAZolam [Xanax] 0.25 mg PO BID PRN 12/02/13 [History] Aspirin 81 mg PO DAILY 12/02/13 [History] Atorvastatin [Lipitor] 20 mg PO HS 12/02/13 [History] DULoxetine HCL [Cymbalta] 60 mg PO DAILY 08/09/14 [History] Omeprazole [PriLOSEC] 20 mg PO AC-BID 08/09/14 [History] Albuterol Inhaler [Ventolin Hfa Inhaler] 1 - 2 puff INHALATION RT-Q6H PRN [History] Atenolol [Tenormin] 25 mg PO BID 11/11/16 [History] Fluticasone/Salmeterol [Advair 250-50 Diskus] 1 puff INHALATION RT-BID 11/11/16 [History] Gabapentin [Gralise] 600 mg PO HS 11/11/16 [History] Meclizine [Antivert] 25 mg PO BID 11/11/16 [History] Lisinopril 40 mg PO DAILY 03/15/17 [History] Baclofen [Lioresal] 5 mg PO TID PRN #20 tablet 03/17/17 [Rx] Naproxen [Naprosyn] 250 mg PO BID #14 tab 03/17/17 [Rx] metFORMIN HCL 1,000 mg PO BID 03/17/17 [History] Follow up Appointment(s)/Referral(s): Alonzo Park MD [STAFF PHYSICIAN] - 1 Week (tilt table test. Patient to call Dr. Park's office Saturday to schedule tilt table teset. The office is closed at time of discharge. ) Conor Dave MD [Primary Care Provider] - 3 Days (Patient to call Dr. Franco's office Saturday to schedule follow up appointment. The office is closed at time of discharge. ) Patient Instructions/Handouts: Naproxen (By mouth), Baclofen (By injection), Syncope (DC) Activity/Diet/Wound Care/Special Instructions: tilit table test with dr. park as outpatient Discharge Disposition: HOME SELF-CARE
--- NOTE | 2017-03-18 12:25 | DS ---
DISCHARGE SUMMARY DATE OF SERVICE: 03/17/2017. ATTENDING NOTE: The patient was seen and examined by me. Discussed with nurse practitioner, Ms. Voss. The patient presented with a syncopal episode. Orthostatics were negative. Outpatient tilt-table test is being arranged with Dr. Rodriguez. Care was discussed at length with the patient's daughter at the bedside. Questions were answered. The patient's orthostatics came back to be negative. The patient is to have a tilt-table test with Dr. Rodriguez. The patient also had some lower back pain secondary to fall. Fracture was ruled out. The patient has been given a short course of naproxen and baclofen. EXAMINATION: Lungs are clear. No tenderness in the lumbar spine. Cardiovascular, 1st and 2nd sounds normal. Discussion and discharge planning more than 35 minutes. MMODL / IJN: [id number] /
== END 2017-03-17 14:30 | disposition home or self-care (01) ==
LOC: EC 10:22 → 3OBS 13:14 → 6SEL 13:44 → 5MS5E 03-16 14:45
PROVIDERS: ADMIT Hospitalist; ATTEND Hospitalist
DX: R55 Syncope and collapse (principal); I25.10 Atherosclerotic heart disease of native coronary artery without angina pectoris; K21.9 Gastro-esophageal reflux disease without esophagitis; I10 Essential (primary) hypertension; G40.909 Epilepsy, unspecified, not intractable, without status epilepticus; M54.5 Low back pain; I69.354 Hemiplegia and hemiparesis following cerebral infarction affecting left non-dominant side; E11.9 Type 2 diabetes mellitus without complications; E78.5 Hyperlipidemia, unspecified; Z79.82 Long term (current) use of aspirin; Z79.899 Other long term (current) drug therapy; Z88.0 Allergy status to penicillin; Z88.8 Allergy status to other drugs, medicaments and biological substances; Z87.891 Personal history of nicotine dependence; Z85.46 Personal history of malignant neoplasm of prostate; Z80.9 Family history of malignant neoplasm, unspecified; W18.30XA Fall on same level, unspecified, initial encounter; Y93.F9 Activity, other caregiving; Y92.002 Bathroom of unspecified non-institutional (private) residence as the place of occurrence of the external cause; R41.0 Disorientation, unspecified
CPT/HCPCS: 36415; 70450; 71111; 72080; 80048; 80053; 80061; 81003; 82550; 82553; 83735; 84484; 85025; 85610; 85730; 93005; 93880; 94640; 94760; 96361; 96372; 96374; 99291

== ENCOUNTER 2017-03-25 07:40 | Day surgery (SDC) | payer MEDICARE ==
[2017-03-19 09:57] VITALS: BMI 27.6
[~2017-03-25 07:40] MED LIST: SODIUM CHLORIDE 0.9% 1,000 ML IV SCH
[2017-03-25 08:20] VITALS: PULSE 71; RESP 20
[2017-03-25 08:36] LABS: Glucose,Whole Blood 89 mg/dL (75-99)
[2017-03-25] MEDS ORDERED: IV FLUID CONTINUATION 1,000 ML IV ONE (09:05)
--- NOTE | 2017-03-25 11:14 | P.PCN ---
Preoperative Diagnosis: Tilt table test Indication for procedure syncope Twelve-lead ECG shows sinus rhythm normal RI narrow QRS normal QT interval and nonspecific ST segment abnormality in the inferior leads Patient underwent tilt table test per protocol Baseline blood pressure 165/95 mmHg Baseline heart rate 68 beats a minute Upon assuming upright position blood pressure immediately dropped to 127/84 mmHg and thereafter remained stable. One NSVT noted, 4 beats No further drop in blood pressure, heart rate Impression Orthostatic hypotension Normal twelve-lead ECG 4 beat run of NSVT, asymptomatic Follow-up with primary care physician and with Dr. Sutherland Condition: stable Disposition: same day
[2017-03-25 11:29] VITALS: BP 159/90
== END 2017-03-25 11:10 | disposition home or self-care (01) ==
LOC: CATHEP 07:40
PROVIDERS: ATTEND Internal Medicine Clinical Cardiac Electrophysiology
DX: I95.1 Orthostatic hypotension (principal); I47.1 Supraventricular tachycardia; Z88.0 Allergy status to penicillin; Z88.8 Allergy status to other drugs, medicaments and biological substances
CPT/HCPCS: 93660

== ENCOUNTER 2021-01-24 14:46 | Observation (INO) | payer MEDICARE ==
[2021-01-24] MEDS ORDERED: NITROGLYCERIN OINT 1 INCH/GM PACKET TOPICAL STA (15:00)
[2021-01-24] MEDS ORDERED: ASPIRIN 81 MG PO STA (15:00)
--- NOTE | 2021-01-24 15:06 | ED ---
General Adult HPI - General Chief complaint: Chest Pain Stated complaint: Chest pain Time Seen by Provider: 01/24/21 14:49 Source: patient, EMS, RN notes reviewed Mode of arrival: EMS Limitations: no limitations - History of Present Illness Initial comments: Patient is a pleasant 80-year-old male presenting to the emergency Department with chest discomfort. Onset of symptoms was around 8:30 or 9 this morning and has been waxing and waning since that time. Discomfort is essentially resolved at this time. Discomfort "hurt". There was some radiation towards the back. Patient did have some nausea and sweating. No dyspnea. No history of similar symptoms previously. Symptoms did worsen with swallowing water and coffee. - Related Data Home Medications Medication Instructions Recorded Confirmed DULoxetine HCL [Cymbalta] 60 mg PO DAILY 08/09/14 01/24/21 Fluticasone/Salmeterol [Advair 1 puff INHALATION RT-BID 11/11/16 01/24/21 250-50 Diskus] Gabapentin [Gralise] 600 mg PO HS 11/11/16 01/24/21 Albuterol Inhaler [Ventolin Hfa 1 puff INHALATION RT-Q6H PRN 01/24/21 01/24/21 Inhaler] Ascorbic Acid [Vitamin C] 1,000 mg PO DAILY 01/24/21 01/24/21 Atorvastatin [Lipitor] 20 mg PO DAILY 01/24/21 01/24/21 Cholecalciferol [Vitamin D3 (25 50 mcg PO DAILY 01/24/21 01/24/21 Mcg = 1000 Iu)] Cinnamon Bark [Cinnamon] 500 mg PO DAILY 01/24/21 01/24/21 Clindamycin HCl 300 mg PO BID 01/24/21 01/24/21 Cyanocobalamin (Vitamin B-12) 2,000 mcg PO DAILY 01/24/21 01/24/21 [Vitamin B-12] DULoxetine HCL [Cymbalta] 30 mg PO DAILY 01/24/21 01/24/21 Diltiazem HCl [Diltiazem HCl 24Hr 240 mg PO HS 01/24/21 01/24/21 ER (CD)] Montelukast Sodium [Singulair] 10 mg PO HS 01/24/21 01/24/21 Valsartan 320 mg PO DAILY 01/24/21 01/24/21 glipiZIDE XL [Glucotrol XL] 2.5 mg PO DAILY 01/24/21 01/24/21 guanFACINE [Tenex] 1 mg PO HS 01/24/21 01/24/21 Allergies Allergy/AdvReac Type Severity Reaction Status Date / Time Penicillins Allergy Rash/Hives Verified 01/24/21 16:01 tuberculin, purified protein Allergy Rapid Verified 01/24/21 16:01 deriva Heart Rate metoprolol tartrate AdvReac Hallucinati Verified 01/24/21 16:01 [From Lopressor] ons Review of Systems ROS Statement: Those systems with pertinent positive or pertinent negative responses have been documented in the HPI. ROS Other: All systems not noted in ROS Statement are negative. Constitutional: Denies: fever Eyes: Denies: eye pain ENT: Denies: ear pain Respiratory: Denies: cough Cardiovascular: Reports: chest pain Endocrine: Denies: fatigue Gastrointestinal: Reports: nausea. Denies: abdominal pain, vomiting Genitourinary: Denies: dysuria Musculoskeletal: Reports: as per HPI Skin: Denies: rash Neurological: Denies: weakness Past Medical History Past Medical History: Coronary Artery Disease (CAD), Cancer, Chest Pain / Angina, CVA/TIA, Diabetes Mellitus, GERD/Reflux, Hyperlipidemia, Hypertension, Prostate Disorder, Seizure Disorder Additional Past Medical History / Comment(s): See Dr Rodriguez's H&P. Prostate cancer with surgery, CVA 12 or 13 yrs ago with L sided weakness that resolved in 3 months, seizure disorder with last seizure 1 year ago, bronchitis, vertigo, rt eye buckle. History of Any Multi-Drug Resistant Organisms: None Reported Past Surgical History: Cholecystectomy, Prostate Surgery Additional Past Surgical History / Comment(s): Prostatectomy, bilateral cataract removals/lens placed, colonoscopy, 2014 cardiac cath-treated medically. Past Anesthesia/Blood Transfusion Reactions: No Reported Reaction Past Psychological History: Depression Smoking Status: Never smoker Past Alcohol Use History: Occasional Past Drug Use History: None Reported - Past Family History Father Family Medical History: Cancer Additional Family Medical History / Comment(s): Father of cancer at the age of 59yrs. Pt does not recall type of cancer. Mother Family Medical History: No Reported History Additional Family Medical History / Comment(s): Mother was healthy and lived to be 98yrs old. General Exam Limitations: no limitations General appearance: alert, in no apparent distress Head exam: Present: normocephalic Eye exam: Present: normal appearance Neck exam: Present: normal inspection Respiratory exam: Present: normal lung sounds bilaterally. Absent: chest wall tenderness Cardiovascular Exam: Present: regular rate, normal rhythm, normal heart sounds Expanded Peripheral pulses: 2+: Radial (R), Radial (L), Posterior Tibialis (R), Posterior Tibialis (L) GI/Abdominal exam: Present: soft. Absent: tenderness Extremities exam: Present: normal inspection. Absent: pedal edema, calf tenderness Neurological exam: Present: alert Psychiatric exam: Present: normal affect, normal mood Skin exam: Present: normal color Course Vital Signs 01/24/21 01/24/21 14:48 15:18 Temperature 97.5 F L Pulse Rate 72 71 Respiratory 18 18 Rate Blood Pressure 137/90 133/84 O2 Sat by Pulse 97 98 Oximetry EKG Findings - EKG Comments: EKG Findings:: Normal sinus rhythm with rate of 72. CA 172. QRS 104. QT 398. QTC 435. Normal axis. Normal QRS. No acute ST change. Medical Decision Making - Medical Decision Making Patient reevaluated and remained symptom-free resting in bed. Patient and family updated on results and plan. Computed tomography scan will be ordered secondary to mildly elevated d-dimer despite age adjustment with questionable infiltrate. Case was discussed with Dr. Guillory, who will admit covered Dr. Dave. Cardiology will consult. - Lab Data Result diagrams: 01/24/21 15:05 01/24/21 15:05 Lab Results 01/24/21 01/24/21 01/24/21 Range/Units 15:05 15:05 15:05 WBC 7.9 (3.8-10.6) k/uL RBC 5.20 (4.30-5.90) m/uL Hgb 17.1 (13.0-17.5) gm/dL Hct 50.9 (39.0-53.0) % MCV 97.9 (80.0-100.0) fL MCH 32.9 (25.0-35.0) pg MCHC 33.6 (31.0-37.0) g/dL RDW 12.3 (11.5-15.5) % Plt Count 227 (150-450) k/uL MPV 8.0 Neutrophils % 61 % Lymphocytes % 24 % Monocytes % 9 % Eosinophils % 2 % Basophils % 1 % Neutrophils # 4.8 (1.3-7.7) k/uL Lymphocytes # 1.9 (1.0-4.8) k/uL Monocytes # 0.7 (0-1.0) k/uL Eosinophils # 0.1 (0-0.7) k/uL Basophils # 0.1 (0-0.2) k/uL PT 10.9 (9.0-12.0) sec INR 1.0 (<1.2) APTT 23.9 (22.0-30.0) sec D-Dimer 0.74 H (<0.60) mg/L FEU Sodium 139 (137-145) mmol/L Potassium 4.7 (3.5-5.1) mmol/L Chloride 107 (98-107) mmol/L Carbon Dioxide 25 (22-30) mmol/L Anion Gap 7 mmol/L BUN 13 (9-20) mg/dL Creatinine 1.09 (0.66-1.25) mg/dL Est GFR (CKD-EPI)AfAm 75 (>60 ml/min/1.73 sqM) Est GFR (CKD-EPI)NonAf 65 (>60 ml/min/1.73 sqM) Glucose 83 (74-99) mg/dL Calcium 9.5 (8.4-10.2) mg/dL Magnesium 2.2 (1.6-2.3) mg/dL Total Bilirubin 1.0 (0.2-1.3) mg/dL AST 48 (17-59) U/L ALT 44 (4-49) U/L Alkaline Phosphatase 59 (38-126) U/L Troponin I (0.000-0.034) ng/mL NT-Pro-B Natriuret Pep pg/mL Total Protein 7.1 (6.3-8.2) g/dL Albumin 4.1 (3.5-5.0) g/dL Amylase 55 (30-110) U/L Lipase 90 (23-300) U/L 01/24/21 01/24/21 Range/Units 15:05 15:05 WBC (3.8-10.6) k/uL RBC (4.30-5.90) m/uL Hgb (13.0-17.5) gm/dL Hct (39.0-53.0) % MCV (80.0-100.0) fL MCH (25.0-35.0) pg MCHC (31.0-37.0) g/dL RDW (11.5-15.5) % Plt Count (150-450) k/uL MPV Neutrophils % % Lymphocytes % % Monocytes % % Eosinophils % % Basophils % % Neutrophils # (1.3-7.7) k/uL Lymphocytes # (1.0-4.8) k/uL Monocytes # (0-1.0) k/uL Eosinophils # (0-0.7) k/uL Basophils # (0-0.2) k/uL PT (9.0-12.0) sec INR (<1.2) APTT (22.0-30.0) sec D-Dimer (<0.60) mg/L FEU Sodium (137-145) mmol/L Potassium (3.5-5.1) mmol/L Chloride (98-107) mmol/L Carbon Dioxide (22-30) mmol/L Anion Gap mmol/L BUN (9-20) mg/dL Creatinine (0.66-1.25) mg/dL Est GFR (CKD-EPI)AfAm (>60 ml/min/1.73 sqM) Est GFR (CKD-EPI)NonAf (>60 ml/min/1.73 sqM) Glucose (74-99) mg/dL Calcium (8.4-10.2) mg/dL Magnesium (1.6-2.3) mg/dL Total Bilirubin (0.2-1.3) mg/dL AST (17-59) U/L ALT (4-49) U/L Alkaline Phosphatase (38-126) U/L Troponin I 0.020 (0.000-0.034) ng/mL NT-Pro-B Natriuret Pep 52 pg/mL Total Protein (6.3-8.2) g/dL Albumin (3.5-5.0) g/dL Amylase (30-110) U/L Lipase (23-300) U/L - Radiology Data Radiology results: image reviewed (Chest x-ray questions atelectasis or infiltrate) Disposition Clinical Impression: Chest pain Disposition: ADMITTED IP TO THIS HOSP Is patient prescribed a controlled substance at d/c from ED?: No Referrals: Conor Dave MD [Primary Care Provider] - 1-2 days Decision Time: 16:18
[2021-01-24 15:17] LABS: Basophils # (A) 0.1 k/uL (0-0.2); Basophils % (A) 1 %; Eosinophils # (A) 0.1 k/uL (0-0.7); Eosinophils % (A) 2 %; HCT 50.9 % (39.0-53.0); HGB 17.1 gm/dL (13.0-17.5); Lymphocytes # (A) 1.9 k/uL (1.0-4.8); Lymphocytes % (A) 24 %; MCH 32.9 pg (25.0-35.0); MCHC 33.6 g/dL (31.0-37.0); MCV 97.9 fL (80.0-100.0); Monocytes # (A) 0.7 k/uL (0-1.0); Monocytes % (A) 9 %; Neutrophils # (A) 4.8 k/uL (1.3-7.7); Neutrophils % (A) 61 %; Platelet Count 227 k/uL (150-450); RDW 12.3 % (11.5-15.5); WBC 7.9 k/uL (3.8-10.6)
[2021-01-24 15:29] LABS: Albumin 4.1 g/dL (3.5-5.0); Calcium 9.5 mg/dL (8.4-10.2); Magnesium 2.2 mg/dL (1.6-2.3); Total Protein 7.1 g/dL (6.3-8.2)
[2021-01-24 15:32] LABS: Partial Thromboplastin Time 23.9 sec (22.0-30.0); Prothrombin Time 10.9 sec (9.0-12.0)
[2021-01-24 15:35] LABS: Potassium 4.7 mmol/L (3.5-5.1)
--- NOTE | 2021-01-24 15:40 | XR ---
EXAMINATION TYPE: XR chest 2V DATE OF EXAM: 01/24/2021 COMPARISON: Chest x-ray March 15, 2017. CT chest July 04, 2015 HISTORY: Chest pain. TECHNIQUE: Frontal and lateral views of the chest are obtained. FINDINGS: Cardiac silhouette size is mildly enlarged. New left greater than right bibasilar opacit ies. Visualized osseous structures are intact. The osseous structures are intact. IMPRESSION: New Left greater than right bibasilar acute infiltrate and/or atelectasis.
[2021-01-24] MEDS ORDERED: NITROGLYCERIN SL TABS 0.4 MG TAB SUBLINGUAL PRN (16:18)
--- NOTE | 2021-01-24 17:06 | CT ---
EXAMINATION TYPE: CT angio thor/abd pel aorta DATE OF EXAM: 01/24/2021 COMPARISON: None HISTORY: Chest pain with shortness of breath CT DLP: 1631.7 mGycm, Automated exposure control for dose reduction was used. CONTRAST: Performed injected with 100 mL of Isovue 370. TECHNIQUE: Axial images were obtained at 5 mm thick sections. Reconstructed images are reviewed on [employer] computer in the coronal plane. Three-D reconstructed images performed by the technologist are pres ented. Images are performed without with intravenous contrast. FINDINGS: Limited Portion of the thyroid visualized is normal. No suspicious lung nodules or focal infiltrates are present. No enlarged mediastinal or hilar adenopathy is evident. The ascending aorta diameter at the level o f the main pulmonary artery is 4.5 cm. The main pulmonary artery diameter at the bifurcation is 3.4 cm. Minimal pericardial fluid is present. Coronary artery calcification is present. Aorta: Aortic root measures 4.0 cm. The ascending thoracic aorta at the level of main pulmonary arter y is 4.5 cm. Aortic arch measures 3.0 cm transverse. The aorta at the diaphragm measures 2.9 cm. No dissection is evident. The abdominal aorta: The aorta tapers normally through its visualized course. Vascular calcification is present. No aneurysmal dilatation is evident. Internal and external iliac vessels are patent. CT abdomen: The adrenal glands are normal. There is a cyst at the superior pole left kidney measuring 2.1 cm. There is a cyst at the posterior superior right kidney measuring 6.2 cm. Liver spleen and pa ncreas are normal. Inferior vena cava is unremarkable. Gallbladder is absent. IMPRESSIONS: 1. Ascending thoracic aortic aneurysm measuring 4.5 cm. 2. Normal abdomen aorta.
[2021-01-24] MEDS: NITROGLYCERIN OINT 1 INCH/GM PACKET TOPICAL SCH (17:59)
[2021-01-24] MEDS ORDERED: ALBUTEROL HFA INHALER INHALATION PRN (18:25)
[2021-01-24] MEDS ORDERED: MELATONIN 3 MG TABLET PO PRN (18:26)
[2021-01-24] MEDS ORDERED: MAG HYDROX/AL HYDROX/SIMETH 30 ML CUP PO PRN (18:26)
[2021-01-24] MEDS ORDERED: ONDANSETRON 4 MG/2 ML VIAL IVP PRN (18:26)
[2021-01-24] MEDS ORDERED: MAGNESIUM HYDROXIDE 2,400 MG/10 ML CUP PO PRN (18:26)
[2021-01-24] MEDS ORDERED: ALPRAZolam 0.25 MG TAB PO PRN (18:26)
[2021-01-24] MEDS ORDERED: LACTULOSE 20 GM/30 ML CUP PO PRN (18:26)
[2021-01-24] MEDS ORDERED: CALCIUM CARBONATE 500 MG CHEWABLE PO PRN (18:26)
[2021-01-24] MEDS ORDERED: NALOXONE 0.4 MG/ML 1 ML VIAL IV PRN (18:26)
[2021-01-24] MEDS ORDERED: ACETAMINOPHEN TAB 325 MG TAB PO PRN (18:26)
--- NOTE | 2021-01-24 20:26 | P.HPIM ---
History of Present Illness H&P Date: 01/24/21 Chief Complaint: Chest pain This is a pleasant 80-year-old patient of Dr. Dave. Chronic stable medical conditions include diabetes, GERD, hypertension, hyperlipidemia, prostate cancer with surgery, seizure with the last episode about a year ago. Patient had a cardiac catheter were 15 years ago and was to get about 40% disease. He does follow with a bail bonding agent out of [place] in the past. Patient is otherwise reasonably active. After taking a shower patient noticed he felt his chest was feeling like a bad gas. Events of the back. Left good 4-5 hours. Received nitroglycerin in the ER the pain actually got better. Reedy tired and rundown. No dizziness nor lig htheadedness no perspiration. Patient also completing a clindamycin for the right foot second toe infection has 3 more days of antibiotics left. Review of systems: GEN.: Tired EYES: None HEENT: None NECK: None RESPIRATORY: None CARDIOVASCULAR: [As above GASTROINTESTINAL: None GENITOURINARY: None MUSCULOSKELETAL: None LYMPHATICS: None HEMATOLOGICAL: None PSYCHIATRY: None NEUROLOGICAL: None Past medical history to include: Nonobstructive CAD 40%, diabetes, GERD, hyperlipidemia, hypertension, seizure disorder, prostate cancer with surgery, stroke with left side weakness that resolved in 3 months. Depression. Social history: Patient smoked from [id number]. Alcohol occasionally. Family history: Father of cancer. Type unknown Physical examination: VITAL SIGNS: 97.5, 72, 18, 137/90, 97% room air GENERAL: BMI 29, reclining in bed, awake, comfortable. EYES: Pupils equal. Conjunctiva normal. HEENT: External appearance of nose and ears normal, oral cavity grossly normal. NECK: JVD not raised; masses not palpable. HEART: First and second heart sounds are normal; no edema. LUNGS: Respiratory rate normal; clear to auscultation. ABDOMEN: Soft, nontender, liver spleen not palpable, no masses palpable. PSYCH: Alert and oriented x3; mood and affect normal. NEUROLOGICAL: Cranial nerves grossly intact; no facial asymmetry, power and sensation grossly intact. LYMPHATICS: No lymph nodes palpable in the axilla and neck INVESTIGATIONS, reviewed in the clinical context: WBC 7.9 hemoglobin 17.1 platelets 227 sodium 139 potassium 4.7 creatinine 1.09 Troponin I less than 0.020, less than 0.012, less than 0.012 Coronavirus [PCR]: Not detected EKG tracing personally reviewed by me-no sinus rhythm. Nonspecific ST-T wave changes. Chest x-ray film personally reviewed by me-some left basilar infiltrate CT angiogram thoracic abdomen pelvis: Ascending thoracic aorta aneurysm 4.5 cm. Assessment and plan: -Possible unstable angina. Prior cardiac cath oh was several years ago showed about 40% disease. Patient has nonspecific EKG changes. Troponins are neg ative. Consult cardiology telemetry. -Diabetes mellitus type II, on oral hypoglycemic Glucotrol XL 2.5 mg a day -GERD -Hyperlipidemia Lipitor 20 mg daily -Essential hypertension Cardizem CD 240 mg daily at bedtime. While soft and to 20 mg daily -Major depression under impression Cymbalta 90 mg daily -COPD in a previous smoker Advair 250/50 one puff twice a day. Synthroid 10 mg daily at bedtime -Right foot second toe cellulitis: Improving Complete clindamycin 300 twice a day. Telemetry. Consult currently. 2-D echocardiogram. Resume home medications. Follow Accu-Cheks. Care was discussed with the patient. Questions answered. Past Medical History Past Medical History: Coronary Artery Disease (CAD), Cancer, Chest Pain / Angina, CVA/TIA, Diabetes Mellitus, GERD/Reflux, Hyperlipidemia, Hypertension, Prostate Disorder, Seizure Disorder Additional Past Medical History / Comment(s): See Dr Rodriguez's H&P. Prostate cancer with surgery, CVA 12 or 13 yrs ago with L sided weakness that resolved in 3 months, seizure disorder with last seizure 1 year ago, bronchitis, vertigo, rt eye buckle. History of Any Multi-Drug Resistant Organisms: None Reported Past Surgical History: Cholecystectomy, Prostate Surgery Additional Past Surgical History / Comment(s): Prostatectomy, bilateral cataract removals/lens placed, colonoscopy, 2014 cardiac cath-treated medically. Past Anesthesia/Blood Transfusion Reactions: No Reported Reaction Past Psychological History: Depression Smoking Status: Never smoker Past Alcohol Use History: Occasional Past Drug Use History: None Reported - Past Family History Father Family Medical History: Cancer Additional Family Medical History / Comment(s): Father of cancer at the age of 59yrs. Pt does not recall type of cancer. Mother Family Medical History: No Reported History Additional Family Medical History / Comment(s): Mother was healthy and lived to be 98yrs old. Medications and Allergies Home Medications Medication Instructions Recorded Confirmed Type DULoxetine HCL [Cymbalta] 60 mg PO DAILY 08/09/14 01/24/21 History Fluticasone/Salmeterol [Advair 1 puff INHALATION RT-BID 11/11/16 01/24/21 History 250-50 Diskus] Gabapentin [Gralise] 600 mg PO HS 11/11/16 01/24/21 History Albuterol Inhaler [Ventolin Hfa 1 puff INHALATION RT-Q6H PRN 01/24/21 01/24/21 History Inhaler] Ascorbic Acid [Vitamin C] 1,000 mg PO DAILY 01/24/21 01/24/21 History Atorvastatin [Lipitor] 20 mg PO DAILY 01/24/21 01/24/21 History Cholecalciferol [Vitamin D3 (25 50 mcg PO DAILY 01/24/21 01/24/21 History Mcg = 1000 Iu)] Cinnamon Bark [Cinnamon] 500 mg PO DAILY 01/24/21 01/24/21 History Clindamycin HCl 300 mg PO BID 01/24/21 01/24/21 History Cyanocobalamin (Vitamin B-12) 2,000 mcg PO DAILY 01/24/21 01/24/21 History [Vitamin B-12] DULoxetine HCL [Cymbalta] 30 mg PO DAILY 01/24/21 01/24/21 History Diltiazem HCl [Diltiazem HCl 24Hr 240 mg PO HS 01/24/21 01/24/21 History ER (CD)] Montelukast Sodium [Singulair] 10 mg PO HS 01/24/21 01/24/21 History Valsartan 320 mg PO DAILY 01/24/21 01/24/21 History glipiZIDE XL [Glucotrol XL] 2.5 mg PO DAILY 01/24/21 01/24/21 History guanFACINE [Tenex] 1 mg PO HS 01/24/21 01/24/21 History Allergies Allergy/AdvReac Type Severity Reaction Status Date / Time Penicillins Allergy Rash/Hives Verified 01/24/21 16:01 tuberculin, purified protein Allergy Rapid Verified 01/24/21 16:01 deriva Heart Rate metoprolol tartrate AdvReac Hallucinati Verified 01/24/21 16:01 [From Lopressor] ons Physical Exam Vitals: Vital Signs Temp Pulse Resp BP Pulse Ox 01/24/21 18:00 80 18 123/68 94 L 01/24/21 15:18 71 18 133/84 98 01/24/21 14:48 97.5 F L 72 18 137/90 97 Intake and Output 01/24/21 01/24/21 01/24/21 06:59 14:59 22:59 Other: Weight 97.069 kg Results CBC & Chem 7: 01/24/21 15:05 01/24/21 15:05 Labs: Abnormal Lab Results - Last 24 Hours (Table) 01/24/21 Range/Units 15:05 D-Dimer 0.74 H (<0.60) mg/L FEU
[2021-01-24 20:58] LABS: Glucose,Whole Blood 113 mg/dL (75-99)
[2021-01-24] MEDS ORDERED: MONTELUKAST 10 MG TAB PO SCH (21:00)
[2021-01-24] MEDS ORDERED: DILTIAZEM CD 240 MG CAP.ER.24H PO SCH (21:00)
[2021-01-24] MEDS ORDERED: ENOXAPARIN 40 MG/0.4 ML SYRINGE SQ SCH (21:00)
[2021-01-24] MEDS ORDERED: guanFACINE 1 MG TAB PO SCH (21:00)
[2021-01-24] MEDS: INSULIN ASPART (NovoLOG) 100 UNIT/ML VIAL SQ SCH (21:00)
[2021-01-24] MEDS: CLINDAMYCIN 150 MG CAP PO SCH (21:19)
[2021-01-25] MEDS: SYMBICORT 80-4.5 MCG INHALER INHALATION SCH ×2 (01:09→08:54)
[2021-01-25] MEDS: GABAPENTIN 100 MG CAP PO SCH ×2 (02:00→10:12)
[2021-01-25] MEDS: NITROGLYCERIN OINT 1 INCH/GM PACKET TOPICAL SCH ×2 (02:04→09:05)
[2021-01-25 06:28] VITALS: TEMP 98.2
[2021-01-25 08:13] LABS: Glucose,Whole Blood 102 mg/dL (75-99)
[2021-01-25] MEDS ORDERED: DULoxetine HCL 60 MG CAPSULE.DR PO SCH (09:00)
[2021-01-25] MEDS ORDERED: ATORVASTATIN 20 MG TAB PO SCH (09:00)
[2021-01-25] MEDS ORDERED: ASCORBIC ACID 500 MG TAB PO SCH (09:00)
[2021-01-25] MEDS ORDERED: CHOLECALCIFEROL 25 MCG (1000 IU) TABLET PO SCH (09:00)
[2021-01-25] MEDS ORDERED: VALSARTAN 160 MG TAB PO SCH (09:00)
[2021-01-25] MEDS ORDERED: CYANOCOBALAMIN 500 MCG TAB PO SCH (09:00)
[2021-01-25] MEDS ORDERED: ASPIRIN 325 MG TAB PO SCH (09:00)
[2021-01-25] MEDS ORDERED: ASPIRIN 81 MG PO SCH (09:00)
[2021-01-25] MEDS ORDERED: DULoxetine HCL 30 MG CAPSULE.DR PO SCH (09:00)
[2021-01-25] MEDS: INSULIN ASPART (NovoLOG) 100 UNIT/ML VIAL SQ SCH ×2 (09:05→12:43)
[2021-01-25 09:07] VITALS: BP 125/76; PULSE 73; RESP 16
--- NOTE | 2021-01-25 09:31 | P.CRDCN ---
History of Present Illness Consult date: 01/25/21 History of present illness: HISTORY OF PRESENT ILLNESS: This is a 80-year-old male with a past medical history significant for hypertrophic cardiomyopathy, hypertension, hyperlipidemia, and mild aortic stenosis. Patient follows in the office with Dr. Vaca. He also follows with a operations research engineer at [facility]. We have been asked to see the patient in consultation for chest pain. Patient examined at the bedside in the emergency room. Patient states he got out of the shower yesterday morning around 9 AM when he began to have chest discomfort. He states it felt like a pressure in the front and a stabbing sensation in the back. He also reports feeling short of breath at that time. He denied feeling diaphoretic. He states the pain was worse when eating or drinking and he felt like it put extra pressure on his chest. He states the pain stayed constant until he received nitro via EMS and then his chest pain improved but did not go away completely until he received a nitro patch which was applied in the emergency room. The patient currently has no chest pain or pressure. He does report headache from his Nitropaste. The patient states he usually is fairly active and has no issues such as chest pain or shortness of breath with exertion. EKG reveals sinus mechanism with mild ST depression in lead I. Chest xray new left Greater than right bibasilar acute infiltrate and/or atelectasis Laboratory data: WBC 7.9. Hemoglobin 17.1. Platelet count 227. D-dimer 0.74. Sodium 139. Potassium 4.7. BUN 13. Creatinine 1.09. Troponin negative 3. ProBNP 52. Patient underwent Lexiscan stress test in April 2020 which was negative for reversible ischemia Patient underwent echocardiogram in November 2018 revealing ejection fraction 65%. Interventricular septum is thickened consistent with hypertrophic obstructive card and myopathy. Mild aortic stenosis. Mild tricuspid regurgitation. REVIEW OF SYSTEMS: At the time of my exam: CONSTITUTIONAL: Denies fever or chills. HEENT: Denies blurred vision, vision changes, or eye pain. Denies hemoptysis CARDIOVASCULAR: Denies chest pain. Denies orthopnea. Denies PND. Denies palpitations RESPIRATORY: Denies shortness of breath. GASTROINTESTINAL: Denies abdominal pain. Denies nausea or vomiting. HEMATOLOGIC: Denies bleeding disorders. GENITOURINARY: Denies any blood in urine. SKIN: Denies pruitis. Denies rash. PHYSICAL EXAM: VITAL SIGNS: Reviewed. GENERAL: Well-developed in no acute distress. HEENT: Head is normocephalic. Pupils are equal, round. Sclerae anicteric. Mucous membranes of the mouth are moist. Neck supple. No JVD or thyromegaly LUNGS: Respirations even and unlabored. Lungs essentially clear to auscultation bilaterally. HEART: Regular rate and rhythm. S1 and S2 heard. Systolic murmur noted. ABDOMEN: Soft. Nondistended. Nontender. EXTREMITIES: Normal range of motion. No clubbing or cyanosis. Peripheral pulses intact. No lower extremity edema NEUROLOGIC: Awake and alert. Oriented x 3. ASSESSMENT: Chest pain, troponin negative 3 Hypertrophic cardiomyopathy, follows with [facility] physician Hypertension Hyperlipidemia Mild aortic stenosis PLAN: An acute coronary event has been ruled out Resume home cardiac medications Obtain 2-D echo to assess cardiac structure and function Patient to undergo stress echocardiogram today to assess for reversible ischemia Further recommendations pending patient's course Nurse practitioner note has been reviewed by physician. Signing provider agrees with the documented findings, assessment, and plan of care. Past Medical History Past Medical History: Coronary Artery Disease (CAD), Cancer, Chest Pain / Angina, CVA/TIA, Diabetes Mellitus, GERD/Reflux, Hyperlipidemia, Hypertension, Prostate Disorder, Seizure Disorder Additional Past Medical History / Comment(s): See Dr Rodriguez's H&P. Prostate cancer with surgery, CVA 12 or 13 yrs ago with L sided weakness that resolved in 3 months, seizure disorder with last seizure 1 year ago, bronchitis, vertigo, rt eye buckle. History of Any Multi-Drug Resistant Organisms: None Reported Past Surgical History: Cholecystectomy, Prostate Surgery Additional Past Surgical History / Comment(s): Prostatectomy, bilateral cataract removals/lens placed, colonoscopy, 2014 cardiac cath-treated medically. Past Anesthesia/Blood Transfusion Reactions: No Reported Reaction Past Psychological History: Depression Smoking Status: Never smoker Past Alcohol Use History: Occasional Past Drug Use History: None Reported - Past Family History Father Family Medical History: Cancer Additional Family Medical History / Comment(s): Father of cancer at the age of 59yrs. Pt does not recall type of cancer. Mother Family Medical History: No Reported History Additional Family Medical History / Comment(s): Mother was healthy and lived to be 98yrs old. Medications and Allergies Home Medications Medication Instructions Recorded Confirmed Type DULoxetine HCL [Cymbalta] 60 mg PO DAILY 08/09/14 01/24/21 History Fluticasone/Salmeterol [Advair 1 puff INHALATION RT-BID 11/11/16 01/24/21 History 250-50 Diskus] Gabapentin [Gralise] 600 mg PO HS 11/11/16 01/24/21 History Albuterol Inhaler [Ventolin Hfa 1 puff INHALATION RT-Q6H PRN 01/24/21 01/24/21 History Inhaler] Ascorbic Acid [Vitamin C] 1,000 mg PO DAILY 01/24/21 01/24/21 History Atorvastatin [Lipitor] 20 mg PO DAILY 01/24/21 01/24/21 History Cholecalciferol [Vitamin D3 (25 50 mcg PO DAILY 01/24/21 01/24/21 History Mcg = 1000 Iu)] Cinnamon Bark [Cinnamon] 500 mg PO DAILY 01/24/21 01/24/21 History Clindamycin HCl 300 mg PO BID 01/24/21 01/24/21 History Cyanocobalamin (Vitamin B-12) 2,000 mcg PO DAILY 01/24/21 01/24/21 History [Vitamin B-12] DULoxetine HCL [Cymbalta] 30 mg PO DAILY 01/24/21 01/24/21 History Diltiazem HCl [Diltiazem HCl 24Hr 240 mg PO HS 01/24/21 01/24/21 History ER (CD)] Montelukast Sodium [Singulair] 10 mg PO HS 01/24/21 01/24/21 History Valsartan 320 mg PO DAILY 01/24/21 01/24/21 History glipiZIDE XL [Glucotrol XL] 2.5 mg PO DAILY 01/24/21 01/24/21 History guanFACINE [Tenex] 1 mg PO HS 01/24/21 01/24/21 History Allergies Allergy/AdvReac Type Severity Reaction Status Date / Time Penicillins Allergy Rash/Hives Verified 01/24/21 16:01 tuberculin, purified protein Allergy Rapid Verified 01/24/21 16:01 deriva Heart Rate metoprolol tartrate AdvReac Hallucinati Verified 01/24/21 16:01 [From Lopressor] ons Physical Exam Vitals: Vital Signs Temp Pulse Resp BP Pulse Ox 01/25/21 06:27 98.2 F 61 18 116/68 97 01/25/21 04:00 61 18 01/25/21 02:07 97.4 F L 71 18 105/67 95 01/24/21 21:24 73 16 111/65 96 01/24/21 18:00 80 18 123/68 94 L 01/24/21 15:18 71 18 133/84 98 01/24/21 14:48 97.5 F L 72 18 137/90 97 Results 01/24/21 15:05 01/24/21 15:05 Cardiac Enzymes 01/24/21 01/24/21 01/24/21 Range/Units 15:05 15:05 18:33 AST 48 (17-59) U/L Troponin I 0.020 <0.012 (0.000-0.034) ng/mL 01/24/21 Range/Units 19:23 AST (17-59) U/L Troponin I <0.012 (0.000-0.034) ng/mL Coagulation 01/24/21 Range/Units 15:05 PT 10.9 (9.0-12.0) sec APTT 23.9 (22.0-30.0) sec CBC 01/24/21 Range/Units 15:05 WBC 7.9 (3.8-10.6) k/uL RBC 5.20 (4.30-5.90) m/uL Hgb 17.1 (13.0-17.5) gm/dL Hct 50.9 (39.0-53.0) % Plt Count 227 (150-450) k/uL Comprehensive Metabolic Panel 01/24/21 Range/Units 15:05 Sodium 139 (137-145) mmol/L Potassium 4.7 (3.5-5.1) mmol/L Chloride 107 (98-107) mmol/L Carbon Dioxide 25 (22-30) mmol/L BUN 13 (9-20) mg/dL Creatinine 1.09 (0.66-1.25) mg/dL Glucose 83 (74-99) mg/dL Calcium 9.5 (8.4-10.2) mg/dL AST 48 (17-59) U/L ALT 44 (4-49) U/L Alkaline Phosphatase 59 (38-126) U/L Total Protein 7.1 (6.3-8.2) g/dL Albumin 4.1 (3.5-5.0) g/dL Current Medications Generic Name Dose Route Start Last Admin Trade Name Freq PRN Reason Stop Dose Admin Acetaminophen 650 mg 01/24/21 18:26 01/25/21 02:06 Acetaminophen Tab 325 Mg Tab PO 650 mg Q6HR PRN Administration Mild Pain or Fever > 100.5 Al Hydroxide/Mg Hydroxide 15 ml 01/24/21 18:26 Mag Hydrox/Al Hydrox/Simeth 30 Ml Cup PO Q6HR PRN Indigestion Albuterol Sulfate 1 puff 01/24/21 18:25 Albuterol Hfa Inhaler INHALATION RT-Q6H PRN Shortness Of Breath Alprazolam 0.25 mg 01/24/21 18:26 Alprazolam 0.25 Mg Tab PO Q6HR PRN Anxiety Ascorbic Acid 1,000 mg 01/25/21 09:00 Ascorbic Acid 500 Mg Tab PO DAILY [facility] Aspirin 325 mg 01/25/21 09:00 Aspirin 325 Mg Tab PO DAILY [facility] Atorvastatin Calcium 20 mg 01/25/21 09:00 Atorvastatin 20 Mg Tab PO DAILY [facility] Budesonide/Formoterol Fumarate 2 puff 01/24/21 20:00 01/25/21 01:09 Symbicort 80-4.5 Mcg Inhaler INHALATION Not Given RT-BID [facility] Calcium Carbonate/Glycine 1,000 mg 01/24/21 18:26 Calcium Carbonate 500 Mg Chewable PO Q4HR PRN Dyspepsia Cholecalciferol 50 mcg 01/25/21 09:00 Cholecalciferol 25 Mcg (1000 Iu) Tablet PO DAILY [facility] Clindamycin HCl 300 mg 01/24/21 21:00 01/24/21 21:19 Clindamycin 150 Mg Cap PO 01/26/21 21:01 300 mg BID [facility] Administration Cyanocobalamin 2,000 mcg 01/25/21 09:00 Cyanocobalamin 500 Mcg Tab PO DAILY [facility] Diltiazem HCl 240 mg 01/24/21 21:00 01/24/21 22:02 Diltiazem Cd 240 Mg Cap.Er.24h PO 240 mg HS [facility] Administration Duloxetine HCl 30 mg 01/25/21 09:00 Duloxetine Hcl 30 Mg Capsule.Dr PO DAILY [facility] Duloxetine HCl 60 mg 01/25/21 09:00 Duloxetine Hcl 60 Mg Capsule.Dr PO DAILY [facility] Enoxaparin Sodium 40 mg 01/24/21 21:00 01/24/21 21:19 Enoxaparin 40 Mg/0.4 Ml Syringe SQ 40 mg HS [facility] Administration Gabapentin 200 mg 01/24/21 22:00 01/25/21 02:00 Gabapentin 100 Mg Cap PO Not Given TID [facility] Glipizide 2.5 mg 01/25/21 09:00 Glipizide 2.5 Mg Tab PO DAILY [facility] Guanfacine HCl 1 mg 01/24/21 21:00 01/24/21 22:02 Guanfacine 1 Mg Tab PO 1 mg HS [facility] Administration Insulin Aspart 0 unit 01/24/21 21:00 01/24/21 21:00 Insulin Aspart (Novolog) 100 Unit/Ml Vial SQ Not Given ACHS [facility] Protocol Lactulose 20 gm 01/24/21 18:26 Lactulose 20 Gm/30 Ml Cup PO DAILY PRN Constipation Magnesium Hydroxide 2,400 mg 01/24/21 18:26 Magnesium Hydroxide 2,400 Mg/10 Ml Cup PO DAILY PRN Constipation Melatonin 3 mg 01/24/21 18:26 Melatonin 3 Mg Tablet PO HS PRN Insomnia Montelukast Sodium 10 mg 01/24/21 21:00 01/24/21 21:19 Montelukast 10 Mg Tab PO 10 mg HS [facility] Administration Naloxone HCl 0.2 mg 01/24/21 18:26 Naloxone 0.4 Mg/Ml 1 Ml Vial IV Q2M PRN Opioid Reversal Nitroglycerin 0.4 mg 01/24/21 16:18 Nitroglycerin Sl Tabs 0.4 Mg Tab SUBLINGUAL Q5M PRN Chest Pain Nitroglycerin 1 inch 01/24/21 18:00 01/25/21 02:04 Nitroglycerin Oint 1 Inch/Gm Packet TOPICAL Not Given Q6HR [facility] Ondansetron HCl 4 mg 01/24/21 18:26 Ondansetron 4 Mg/2 Ml Vial IVP Q8HR PRN Nausea And Vomiting Sodium Chloride 10 ml 01/24/21 21:00 01/25/21 01:57 Sodium Chloride 0.9% Flush 10 Ml Syringe IV Not Given BID [facility] Valsartan 320 mg 01/25/21 09:00 Valsartan 160 Mg Tab PO DAILY [facility] 01/24/21 15:05 01/24/21 15:05
[2021-01-25 09:45] LABS: Chol/HDL Ratio 3.17 Ratio
[2021-01-25] MEDS: CLINDAMYCIN 150 MG CAP PO SCH (10:13)
--- NOTE | 2021-01-25 11:29 | ECHOF ---
Referral Reason:Chest pain MEASUREMENTS -------- HEIGHT: 182.9 cm WEIGHT: 97.1 kg BP: 116/68 RVIDd: 2.9 cm (< 3.3) IVSd: 1.5 cm (0.6 - 1.1) LVIDd: 4.2 cm (3.9 - 5.3) LVPWd: 1.5 cm (0.6 - 1.1) IVSs: 2.0 cm LVIDs: 2.9 cm LVPWs: 2.4 cm LA Diam: 3.3 cm (2.7 - 3.8) LAESV Index (A-L): 23.46 ml/m Ao Diam: 3.7 cm (2.0 - 3.7) AV Cusp: 1.4 cm (1.5 - 2.6) MV EXCURSION: 7.375 mm (> 18.000) MV EF SLOPE: 21 mm/s (70 - 150) EPSS: 0.6 cm MV E Doug: 1.06 m/s MV DecT: 417 ms MV A Doug: 1.57 m/s MV E/A Ratio: 0.67 AV maxP.49 mmHg AV meanP.21 mmHg AR PHT: 673 ms RAP: 5.00 mmHg RVSP: 34.73 mmHg FINDINGS -------- Sinus rhythm. This was a technically good study. The left ventricular size is normal. There is moderate concentric left ventricular hypertrophy. O verall left ventricular systolic function is normal with, an EF between 60 - 65 %. The right ventricle is normal in size. Normal LA size by volume 22+/-6 ml/m2. The right atrium is normal in size. Interatrial and interventricular septum intact. There is moderate aortic valve sclerosis. There is [id number] aortic regurgitation. There i s moderate aortic stenosis present. Peak/mean gradient across the Aortic Valve is 41.49mmHg / 23.21 mmHg. Mild mitral annular calcification present. Mild mitral regurgitation is present. Mild tricuspid regurgitation present. There is mild pulmonary hypertension. The right ventricular systolic pressure, as measured by Doppler, is 34.73mmHg. There is no pulmonic regurgitation present. The aortic root size is normal. Normal inferior vena cava with normal inspiratory collapse consistent with estimated right atrial pre ssure of 5 mmHg. There is no pericardial effusion. CONCLUSIONS -------- 1. The left ventricular size is normal. 2. There is moderate concentric left ventricular hypertrophy. 3. Overall left ventricular systolic function is normal with, an EF between 60 - 65 %. 4. There is moderate aortic valve sclerosis. 5. There is [id number] aortic regurgitation. 6. There is moderate aortic stenosis present. 7. Peak/mean gradient across the Aortic Valve is 41.49mmHg / 23.21mmHg. 8. Mild mitral annular calcification present. 9. Mild mitral regurgitation is present. 10. Mild tricuspid regurgitation present. 11. There is mild pulmonary hypertension. 12. The right ventricular systolic pressure, as measured by Doppler, is 34.73mmHg. 13. There is no pericardial effusion. DIRECT CUSTOMER SERVICE REPRESENTATIVE: Demi Guidry RDCS
--- NOTE | 2021-01-25 11:34 | P.STRESS ---
- Stress Test Note Stress Test Results/Findings: Exam Performed: stress echo exercise Exam Date: 01/25/21 Reason for Exam: CHEST PAIN Height: 6 ft Weight: 97.07 kg Protocol: JUAN Stage: 2 Duration of Exercise: 4:40 Resting Heart Rate: 77 Resting Blood Pressure: 129/73 Maximum Achieved Heart Rate: 139 Maximum Achieved Blood Pressure: 169/84 85% PMHR: 121 100% PMHR: 142 METS: 6.2 Technologist Comment: Stress Test Results/Findings: Patient underwent exercise stress echo with a Juan protocol treadmill stress test. Patient exercised into Stage 2 for a total of 4 minutes and 40 seconds reaching a total of 6.2 METS. Patient's maximum heart rate was 139 which represented 98% age-predicted maximum heart rate. Stress EKG portion: At baseline patient's EKG showed normal sinus rhythm, normal axis, nonspecific minimal ST depressions in the inferior and lateral leads.. At peak exercise, EKG showed mild accentuation of baseline EKG abnormalities and occasional PVCs. Stress echo portion: 2-D echocardiogram was performed in the parasternal long, personal short, apical 2 and apical four-chamber views at rest, peak exercise and in recovery. At baseline, echocardiogram showed left ventricular ejection fraction 55-60% without wall motion abnormalities. With peak exercise, echocardiogram shows improvement in left ventricular ejection fraction, increase contractility, decrease in left ventricular end systolic dimension without wall motion abnormalities consistent with a normal response to exercise. Conclusions: 1. Normal echo response to exercise without evidence of inducible ischemia. 2. Nondiagnostic EKG portion sector baseline EKG abnormalities. 3. Normal ejection fraction 55-60% 4. Poor exercise capacity.
[2021-01-25 12:20] LABS: Glucose,Whole Blood 111 mg/dL (75-99)
--- NOTE | 2021-01-25 17:11 | P.DS ---
Providers Date of admission: 01/24/21 16:18 Expected date of discharge: 01/25/21 Attending physician: Cedric Guillory Primary care physician: [facility] Course: Chief Complaint: Chest pain This is a pleasant 80-year-old patient of Dr. Dave. Chronic stable medical conditions include diabetes, GERD, hypertension, hyperlipidemia, prostate cancer with surgery, seizure with the last episode about a year ago. Patient had a cardiac catheter were 15 years ago and was to get about 40% disease. He does follow with a gas system operator out of [place] in the past. Patient is otherwise reasonably active. After taking a shower patient noticed he felt his chest was feeling like a bad gas. Events of the back. Left good 4-5 hours. Received nitroglycerin in the ER the pain actually got better. Julian tired and rundown. No dizziness nor lightheadedness no perspiration. Patient also completing a clindamycin for the right foot second toe infection has 3 more days of antibiotics left. Today: 2-D echo showed moderate aortic stenosis. negative stress test. Patient having no further symptoms. Cleared by cardiology for discharge. Patient to follow-up with his own gas system operator. Discussion and discharge planning more than 35 minutes Consultation: Gaurav Handley from cardiology Past medical history to include: Nonobstructive CAD 40%, diabetes, GERD, hyperlipidemia, hypertension, seizure disorder, prostate cancer with surgery, stroke with left side weakness that resolved in 3 months. Depression. Social history: Patient smoked from [id number]. Alcohol occasionally. Family history: Father of cancer. Type unknown Physical examination: VITAL SIGNS: 98.2, 73, 16, 125/76, 97% room air GENERAL: awake, comfortable. EYES: Pupils equal. Conjunctiva normal. NECK: JVD not raised; masses not palpable. HEART: First and second heart sounds are normal; no edema. LUNGS: Respiratory rate normal; clear to auscultation. ABDOMEN: Soft, nontender, liver spleen not palpable, no masses palpable. PSYCH: Alert and oriented x3; mood and affect normal. INVESTIGATIONS, reviewed in the clinical context: Stress echocardiogram: Negative for ischemia. Poor exercise capacity. 2-D echocardiogram: Moderate concentric LVH. EF 66-65%. Moderate aortic valve sclerosis. Moderate aortic stenosis. LDL 35 WBC 7.9 hemoglobin 17.1 platelets 227 sodium 139 potassium 4.7 creatinine 1.09 Troponin I less than 0.020, less than 0.012, less than 0.012 Coronavirus [PCR]: Not detected EKG tracing personally reviewed by me-no sinus rhythm. Nonspecific ST-T wave changes. Chest x-ray film personally reviewed by me-some left basilar infiltrate CT angiogram thoracic abdomen pelvis: Ascending thoracic aorta aneurysm 4.5 cm. Assessment and plan: -Anterior chest wall pain with negative stress test. -Moderate aortic valve stenosis with sclerosis. Follow-up with his own gas system operator -Diabetes mellitus type II, on oral hypoglycemic Glucotrol XL 2.5 mg a day -GERD -Hyperlipidemia Lipitor 20 mg daily -Essential hypertension Cardizem CD 240 mg daily at bedtime. While soft and to 20 mg daily -Major depression under impression Cymbalta 90 mg daily -COPD in a previous smoker Advair 250/50 one puff twice a day. Synthroid 10 mg daily at bedtime -Right foot second toe cellulitis: Improving Complete clindamycin 300 twice a day. Disposition: Home Plan - Discharge Summary Discharge Rx Participant: No New Discharge Prescriptions: New Aspirin 81 mg PO DAILY tab Continue DULoxetine HCL [Cymbalta] 60 mg PO DAILY Fluticasone/Salmeterol [Advair 250-50 Diskus] 1 puff INHALATION RT-BID Gabapentin [Gralise] 600 mg PO HS Albuterol Inhaler [Ventolin Hfa Inhaler] 1 puff INHALATION RT-Q6H PRN PRN Reason: Shortness Of Breath DULoxetine HCL [Cymbalta] 30 mg PO DAILY Valsartan 320 mg PO DAILY guanFACINE [Tenex] 1 mg PO HS Clindamycin HCl 300 mg PO BID Ascorbic Acid [Vitamin C] 1,000 mg PO DAILY Cyanocobalamin (Vitamin B-12) [Vitamin B-12] 2,000 mcg PO DAILY Cholecalciferol [Vitamin D3 (25 Mcg = 1000 Iu)] 50 mcg PO DAILY Montelukast Sodium [Singulair] 10 mg PO HS Atorvastatin [Lipitor] 20 mg PO DAILY glipiZIDE XL [Glucotrol XL] 2.5 mg PO DAILY Diltiazem HCl [Diltiazem HCl 24Hr ER (CD)] 240 mg PO HS No Action Cinnamon Bark [Cinnamon] 500 mg PO DAILY Discharge Medication List DULoxetine HCL [Cymbalta] 60 mg PO DAILY 08/09/14 [History] Fluticasone/Salmeterol [Advair 250-50 Diskus] 1 puff INHALATION RT-BID 11/11/16 [History] Gabapentin [Gralise] 600 mg PO HS 11/11/16 [History] Albuterol Inhaler [Ventolin Hfa Inhaler] 1 puff INHALATION RT-Q6H PRN 01/24/21 [History] Ascorbic Acid [Vitamin C] 1,000 mg PO DAILY 01/24/21 [History] Atorvastatin [Lipitor] 20 mg PO DAILY 01/24/21 [History] Cholecalciferol [Vitamin D3 (25 Mcg = 1000 Iu)] 50 mcg PO DAILY 01/24/21 [History] Cinnamon Bark [Cinnamon] 500 mg PO DAILY 01/24/21 [History] Clindamycin HCl 300 mg PO BID 01/24/21 [History] Cyanocobalamin (Vitamin B-12) [Vitamin B-12] 2,000 mcg PO DAILY 01/24/21 [History] DULoxetine HCL [Cymbalta] 30 mg PO DAILY 01/24/21 [History] Diltiazem HCl [Diltiazem HCl 24Hr ER (CD)] 240 mg PO HS 01/24/21 [History] Montelukast Sodium [Singulair] 10 mg PO HS 01/24/21 [History] Valsartan 320 mg PO DAILY 01/24/21 [History] glipiZIDE XL [Glucotrol XL] 2.5 mg PO DAILY 01/24/21 [History] guanFACINE [Tenex] 1 mg PO HS 01/24/21 [History] Aspirin 81 mg PO DAILY tab 01/25/21 [Rx] Follow up Appointment(s)/Referral(s): Dwayne Vaca MD [STAFF PHYSICIAN] - 02/14/21 3:45 pm (AT [facility])) Conor Dave MD [Primary Care Provider] - 01/27/21 9:00 am (Appointment with Juan Sharma @ [facility] ) Patient Instructions/Handouts: Chest Pain (DC) Discharge Disposition: HOME SELF-CARE
== END 2021-01-25 14:02 | disposition home or self-care (01) ==
LOC: EC 14:46 → 6NMEDSUR 16:18
PROVIDERS: ADMIT Hospitalist; ATTEND Hospitalist
DX: R07.89 Other chest pain (principal); I35.0 Nonrheumatic aortic (valve) stenosis; E11.9 Type 2 diabetes mellitus without complications; K21.9 Gastro-esophageal reflux disease without esophagitis; E78.5 Hyperlipidemia, unspecified; I10 Essential (primary) hypertension; F32.9 Major depressive disorder, single episode, unspecified; J44.9 Chronic obstructive pulmonary disease, unspecified; L03.031 Cellulitis of right toe; I42.2 Other hypertrophic cardiomyopathy; Z20.822 Contact with and (suspected) exposure to COVID-19; I25.10 Atherosclerotic heart disease of native coronary artery without angina pectoris; I71.2 Thoracic aortic aneurysm, without rupture; R11.0 Nausea; R61 Generalized hyperhidrosis; R51.9 Headache, unspecified; R91.8 Other nonspecific abnormal finding of lung field; R76.11 Nonspecific reaction to tuberculin skin test without active tuberculosis; G40.909 Epilepsy, unspecified, not intractable, without status epilepticus; Z79.899 Other long term (current) drug therapy; Z79.84 Long term (current) use of oral hypoglycemic drugs; Z88.0 Allergy status to penicillin; Z88.8 Allergy status to other drugs, medicaments and biological substances; N42.9 Disorder of prostate, unspecified; Z79.51 Long term (current) use of inhaled steroids; Z98.41 Cataract extraction status, right eye; Z98.42 Cataract extraction status, left eye; Z96.1 Presence of intraocular lens; Z87.891 Personal history of nicotine dependence; Z85.46 Personal history of malignant neoplasm of prostate; Z90.49 Acquired absence of other specified parts of digestive tract; Z86.73 Personal history of transient ischemic attack (TIA), and cerebral infarction without residual deficits; Z80.9 Family history of malignant neoplasm, unspecified
CPT/HCPCS: 99285; 96372; 36415; 93005 ×2; 93306; 93351; 85379; 83880; 80061; 80053; 82150; 83690; 83735; 84484; 85025; 85610; 85730; 87635; 71046; 71275; 74174; G0378 ×2; J1650; Q9967